=== PATIENT | female | born 1945 | race Caucasian/White ===

== ENCOUNTER 2022-05-23 10:25 | Inpatient (IN) | payer MEDICARE ==
[~2022-05-23] VITALS: Ht 165.1 cm; Wt 120.0 kg
[2022-05-23] MEDS ORDERED: PROPOFOL 1000 MG/ISO-OSM 0 ML ONE (10:51)
[2022-05-23 10:58] LABS: COVID AG,FIA SOURCE NASOPHARYNGEAL
[2022-05-23 10:59] LABS: BASOPHILS % (AUTO) 0.1 % (0.0-2.0); EOSINOPHILS % (AUTO) 1.1 % (1.0-6.0); HEMATOCRIT 27.1 % (36-46); HEMOGLOBIN 7.3 g/dL (12.0-16.0); LYMPHOCYTES # (AUTO) 8.5 K/uL (1.0-4.8); LYMPHOCYTES % (AUTO) 45.1 % (22.0-44.0); MEAN CORPUSCULAR HEMOGLOBIN 17.5 pg (26.0-34.0); MEAN CORPUSCULAR HGB CONC 26.8 G/dL (31.0-37.0); MEAN CORPUSCULAR VOLUME 65 fL (80-100); MONOCYTES # (AUTO) 0.8 K/uL (0.1-1.0); MONOCYTES % (AUTO) 4.3 % (2.0-9.0); NEUTROPHILS # (AUTO) 9.3 K/uL (1.8-7.7); NEUTROPHILS % (AUTO) 49.4 % (40.0-70.0); PLATELET COUNT (AUTO) 289 K/uL (150-450); RED BLOOD CELL COUNT(AUTO) 4.14 MIL/uL (4.00-5.20); RED CELL DISTRIBUTION WIDTH 22.8 % (11.5-14.5)
[2022-05-23 11:11] LABS: ANION GAP 15 mmol/L (8-16); CALCIUM, TOTAL 8.6 mg/dL (8.8-10.5); CARBON DIOXIDE 19 mmol/L (22-29); CHLORIDE 100 mmol/L (98-107); CREATININE 1.53 mg/dL (0.60-1.30); GLOMERULAR FILTR. RATE CALC 33 mL/min (>60); GLUCOSE,RANDOM 353 mg/dL (70-110); POTASSIUM 3.5 mmol/L (3.5-5.1); SODIUM SERUM 134 mmol/L (136-145); UREA NITROGEN, BLOOD 11 mg/dL (7-18)
[2022-05-23 11:21] LABS: AMMONIA 79 umol/L (11-32)
[2022-05-23] MEDS ORDERED: PROPOFOL 1000 MG/ISO-OSM 100 ML ONE (11:23)
[2022-05-23 11:25] LABS: APPEARANCE,URINE CLEAR (CLEAR); BILIRUBIN,URINE NEGATIVE (NEGATIVE); GLUCOSE, URINE (UA) >=1000 mg/dL (NEGATIVE); KETONES,URINE TRACE mg/dL (NEGATIVE); LEUKOCYTE ESTERASE ,URINE NEGATIVE (NEGATIVE); NITRATE,URINE NEGATIVE (NEGATIVE); OCCULT BLOOD,URINE MODERATE (NEGATIVE); PROTEIN,URINE 300-600,SEE CONFIRM mg/dL (NEGATIVE); SPECIFIC GRAVITIY, URINE 1.009 (1.003-1.030); UROBILINOGEN,URINE <=1.0 mg/dL (<=1.0)
[2022-05-23 11:25] LABS: ALANINE AMINOTRANSFERASE 251 U/L (12-78); ALBUMIN 3.1 g/dL (3.4-5.0); ALKALINE PHOSPHATASE 144 U/L (46-116); ASPARTATE AMINOTRANSFERASE 311 U/L (15-37); BILIRUBIN,TOTAL 0.1 mg/dL (0.1-1.0); FREE T4 (FREE THYROXINE) 0.69 ng/dL (0.76-1.46); LIPASE 66 U/L (73-393); THYROID STIMULATING HORMONE 12.39 uIU/mL (0.36-3.74); TOTAL PROTEIN, SERUM 7.1 g/dL (6.4-8.2)
[2022-05-23] MEDS ORDERED: PIPERACILLIN/TAZO 3.375 GM/D5W 50 ML IV ONE (11:30)
[2022-05-23] MEDS ORDERED: MIDAZOLAM HCL 2 MG/2 ML VIAL IVP ONE (11:30)
[2022-05-23 11:31] LABS: AMPHET/METH SCREEN,URINE NEGATIVE (NEGATIVE); BARBITURATE SCREEN, URINE NEGATIVE (NEGATIVE); BENZODIAZEPINES SCREEN,URINE NEGATIVE (NEGATIVE); CANNABINOID SCREEN,URINE NEGATIVE (NEGATIVE); COCAINE SCREEN,URINE NEGATIVE (NEGATIVE); METHADONE SCREEN, URINE NEGATIVE (NEGATIVE); OPIATE SCREEN,URINE NEGATIVE (NEGATIVE)
[2022-05-23] MEDS: PROPOFOL 1000 MG/ISO-OSM 100 ML IV PRN ×3 (11:31→23:11)
[2022-05-23 11:34] LABS: PHENCYCLIDINE SCREEN,URINE NEGATIVE (NEGATIVE)
[2022-05-23 11:50] LABS: ABG BASE EXCESS -7.1 mmol/L (-2.0-3.0); ABG CARBOXYHEMOGLOBIN 1.4 % (0.0-1.5); ABG HCO3 18.7 mmol/L (22.0-26.0); ABG METHEMOGLOBIN 0.3 % (0.0-1.5); ABG OXYGEN CONTENT 11.6 mL/dL (15.0-23.0); ABG OXYGEN SATURATION 98.3 % (95.0-98.0); ABG OXYHEMOGLOBIN 96.6 % (94.0-100.0); ABG PCO2 60 mmHg (35-45); ABG PH 7.173 (7.35-7.450); ABG TOTAL HEMOGLOBIN 8.3 G/dL (12.0-18.0); PO2, ARTERIAL BG 145.1 mmHg (75.0-83.0); SITE, BLOOD GAS RT RADIAL; SOURCE, BLOOD GAS ARTERIAL; TEMPERATURE, FAHRENHEIT, BG 98.6 FAHREN (96.0-98.6)
[2022-05-23 11:51] LABS: O2 DEVICE,BLOOD GAS VENTILATOR (ROOM AIR); PEEP,BG 5 cm H2O; PRESSURE SUPPORT, BG 5 cm H2O; SPONTANEOUS VT, BG 555 ml; VENT MODE, BG SIMV (ROOM AIR); VT, ABG 420 ml
[2022-05-23 12:30] LABS: B-TYPE NATRIURETIC PEPTIDE 147 pg/mL (0-100)
[2022-05-23 12:31] LABS: SULFOSALICYLIC ACID,URINE 4+ (Negative)
[2022-05-23 12:34] LABS: BACTERIA,URINE Rare /HPF (None Seen)
[2022-05-23] MEDS ORDERED: IOHEXOL 350 MG/ML 100 ML VIAL ONE (12:45)
[2022-05-23] MEDS ORDERED: SODIUM CHLORIDE 0.9% 100 ML ONE (12:45)
[2022-05-23] MEDS ORDERED: SODIUM BICARBONATE [ADULT] 8.4% 50 MEQ/50 ML SYRINGE IVP ONE (14:15)
[2022-05-23] MEDS ORDERED: *CLINICAL-LEVOFLOXACIN IVPB DOSING CLINICAL ONE (14:30)
[2022-05-23] MEDS: FentaNYL CIT 1000MCG/0.9% NACL 100 ML IV PRN ×2 (14:37→20:48)
[2022-05-23] MEDS: LEVOFLOXACIN 750 MG/D5% WATER 150 ML IV SCH (14:45)
[2022-05-23 15:28] LABS: ABG A-A DIFF O2 397.8 mmHg (10-20.0); ABG BASE EXCESS 0.2 mmol/L (-2.0-3.0); ABG CARBOXYHEMOGLOBIN 0.7 % (0.0-1.5); ABG HCO3 24.6 mmol/L (22.0-26.0); ABG METHEMOGLOBIN 0.3 % (0.0-1.5); ABG OXYGEN CONTENT 11.5 mL/dL (15.0-23.0); ABG OXYGEN SATURATION 99.7 % (95.0-98.0); ABG OXYHEMOGLOBIN 98.7 % (94.0-100.0); ABG PCO2 48 mmHg (35-45); ABG PH 7.348 (7.35-7.450); ABG TOTAL HEMOGLOBIN 7.8 G/dL (12.0-18.0); O2 DEVICE,BLOOD GAS VENTILATOR (ROOM AIR); PEEP,BG 5 cm H2O; PO2, ARTERIAL BG 268.1 mmHg (75.0-83.0); SITE, BLOOD GAS RT RADIAL; SOURCE, BLOOD GAS ARTERIAL; TEMPERATURE, FAHRENHEIT, BG 97.9 FAHREN (96.0-98.6); VT, ABG 420 ml
[2022-05-23] MEDS ORDERED: SODIUM CHLORIDE 0.9% 1,000 ML IV ONE ×3 (15:45→17:00)
[2022-05-23] MEDS: NOREPINEPHRINE 8 MG/D5%-WATER 250 ML IV PRN (17:30)
[2022-05-23 19:36] LABS: GLUCOSE,POINT OF CARE 105 MG/DL (70-110)
[2022-05-23] MEDS ORDERED: IPRATROPIUM BROMIDE 0.5 MG/2.5 ML NEB SOLUTION NEB PRN (19:45)
[2022-05-23] MEDS ORDERED: ALBUTEROL SULFATE 2.5 MG/0.5 ML NEB SOLUTION NEB PRN (19:45)
[2022-05-23] MEDS ORDERED: ONDANSETRON HCL 4 MG/2 ML VIAL IVP PRN (19:45)
[2022-05-23] MEDS ORDERED: MAGNESIUM HYDROXIDE SUSPENSION 30 ML UDCUP PO PRN (19:45)
[2022-05-23] MEDS ORDERED: HYDROCODONE/ACETAMINOPHEN 5-325 MG TABLET PO PRN (19:45)
[2022-05-23] MEDS ORDERED: BISACODYL 10 MG RECTAL RECTAL SUPPOSITORY PR PRN (19:45)
[2022-05-23] MEDS ORDERED: ZOLPIDEM TARTRATE 5 MG TABLET PO PRN (19:45)
[2022-05-23 20:00] VITALS: BP 93/49
[2022-05-23] MEDS: DOCUSATE SODIUM 100 MG CAPSULE PO SCH (20:19)
[2022-05-23] MEDS: HEPARIN SODIUM,PORCINE 5,000 UNITS/ML VIAL SQ SCH (23:13)
[2022-05-24] VITALS (20 sets, daily range): BP systolic 86–140; BP diastolic 11–75
[2022-05-24] MEDS: PROPOFOL 1000 MG/ISO-OSM 100 ML IV PRN ×6 (03:05→22:41)
[2022-05-24] MEDS: FentaNYL CIT 1000MCG/0.9% NACL 100 ML IV PRN ×2 (03:06→10:21)
[2022-05-24] MEDS: NOREPINEPHRINE 8 MG/D5%-WATER 250 ML IV PRN (04:37)
[2022-05-24] MEDS: ACETAMINOPHEN 325 MG TABLET PO PRN ×3 (05:34→16:43)
[2022-05-24 06:03] LABS: BASOPHILS % (AUTO) 0.2 % (0.0-2.0); EOSINOPHILS % (AUTO) 0.6 % (1.0-6.0); HEMATOCRIT 21.8 % (36-46); LYMPHOCYTES # (AUTO) 1.7 K/uL (1.0-4.8); LYMPHOCYTES % (AUTO) 15.2 % (22.0-44.0); MEAN CORPUSCULAR HEMOGLOBIN 17.8 pg (26.0-34.0); MEAN CORPUSCULAR HGB CONC 28.8 G/dL (31.0-37.0); MEAN CORPUSCULAR VOLUME 62 fL (80-100); MONOCYTES % (AUTO) 8.7 % (2.0-9.0); NEUTROPHILS # (AUTO) 8.3 K/uL (1.8-7.7); NEUTROPHILS % (AUTO) 75.3 % (40.0-70.0); PLATELET COUNT (AUTO) 212 K/uL (150-450); RED BLOOD CELL COUNT(AUTO) 3.53 MIL/uL (4.00-5.20); RED CELL DISTRIBUTION WIDTH 21.8 % (11.5-14.5)
[2022-05-24 06:06] LABS: CALCIUM, TOTAL 7.5 mg/dL (8.8-10.5); CREATININE 0.99 mg/dL (0.60-1.30); POTASSIUM 4.4 mmol/L (3.5-5.1)
[2022-05-24 06:13] LABS: HEMOGLOBIN 6.3 g/dL (12.0-16.0)
[2022-05-24] MEDS: DOCUSATE SODIUM 100 MG CAPSULE PO SCH ×2 (09:00→20:31)
[2022-05-24] MEDS: PANTOPRAZOLE SODIUM 40 MG/VIAL IVP SCH (09:03)
[2022-05-24] MEDS: HEPARIN SODIUM,PORCINE 5,000 UNITS/ML VIAL SQ SCH ×3 (09:03→23:12)
[2022-05-24] MEDS: ETHYL ALCOHOL 62% ANTISEPTIC NASAL SANITIZER 0.6 ML AMPUL NASAL SCH ×2 (09:03→20:26)
[2022-05-24] MEDS ORDERED: SODIUM CHLORIDE 0.9% 250 ML IV ONE (09:34)
[2022-05-24] MEDS ORDERED: LEVOTHYROXINE SODIUM 50 MCG TABLET NG SCH (10:00)
[2022-05-24] MEDS: LEVOTHYROXINE SODIUM 100 MCG TABLET NG SCH (10:20)
[2022-05-24] MEDS: SODIUM CHLORIDE 0.9% 1,000 ML IV SCH ×2 (10:20→20:26)
[2022-05-24 13:00] LABS: % IRON SATURATION 4.1 % (22-44)
[2022-05-25] VITALS: BP 102/53
[2022-05-25 00:28] LABS: BASOPHILS % (AUTO) 0.4 % (0.0-2.0); EOSINOPHILS % (AUTO) 0.9 % (1.0-6.0); HEMATOCRIT 27.1 % (36-46); HEMOGLOBIN 8.1 g/dL (12.0-16.0); LYMPHOCYTES # (AUTO) 1.3 K/uL (1.0-4.8); LYMPHOCYTES % (AUTO) 9.6 % (22.0-44.0); MEAN CORPUSCULAR HEMOGLOBIN 20.5 pg (26.0-34.0); MEAN CORPUSCULAR HGB CONC 30.1 G/dL (31.0-37.0); MEAN CORPUSCULAR VOLUME 68 fL (80-100); MONOCYTES # (AUTO) 1.1 K/uL (0.1-1.0); MONOCYTES % (AUTO) 8.1 % (2.0-9.0); NEUTROPHILS # (AUTO) 11.4 K/uL (1.8-7.7); PLATELET COUNT (AUTO) 146 K/uL (150-450); RED BLOOD CELL COUNT(AUTO) 3.98 MIL/uL (4.00-5.20); RED CELL DISTRIBUTION WIDTH 28.5 % (11.5-14.5)
[2022-05-25] MEDS: FentaNYL CIT 1000MCG/0.9% NACL 100 ML IV PRN ×3 (01:35→21:04)
[2022-05-25] MEDS: PROPOFOL 1000 MG/ISO-OSM 100 ML IV PRN ×6 (02:26→21:06)
[2022-05-25 04:00] VITALS: BP 113/40
[2022-05-25] MEDS: SODIUM CHLORIDE 0.9% 1,000 ML IV SCH ×2 (05:30→16:31)
[2022-05-25 05:37] LABS: BASOPHILS % (AUTO) 0.4 % (0.0-2.0); EOSINOPHILS % (AUTO) 0.5 % (1.0-6.0); HEMATOCRIT 26.2 % (36-46); HEMOGLOBIN 8.1 g/dL (12.0-16.0); LYMPHOCYTES # (AUTO) 1.1 K/uL (1.0-4.8); LYMPHOCYTES % (AUTO) 7.5 % (22.0-44.0); MEAN CORPUSCULAR HGB CONC 30.8 G/dL (31.0-37.0); MEAN CORPUSCULAR VOLUME 68 fL (80-100); MONOCYTES # (AUTO) 1.2 K/uL (0.1-1.0); MONOCYTES % (AUTO) 8.5 % (2.0-9.0); NEUTROPHILS # (AUTO) 11.9 K/uL (1.8-7.7); NEUTROPHILS % (AUTO) 83.1 % (40.0-70.0); PLATELET COUNT (AUTO) 141 K/uL (150-450); RED BLOOD CELL COUNT(AUTO) 3.84 MIL/uL (4.00-5.20); RED CELL DISTRIBUTION WIDTH 28.2 % (11.5-14.5)
[2022-05-25 05:47] LABS: CALCIUM, TOTAL 7.9 mg/dL (8.8-10.5); CREATININE 1.24 mg/dL (0.60-1.30); POTASSIUM 4.6 mmol/L (3.5-5.1)
[2022-05-25] MEDS: LEVOTHYROXINE SODIUM 100 MCG TABLET NG SCH (06:09)
[2022-05-25 08:00] VITALS: BP 131/58
[2022-05-25] MEDS: HEPARIN SODIUM,PORCINE 5,000 UNITS/ML VIAL SQ SCH ×2 (08:00→15:05)
[2022-05-25] MEDS: DOCUSATE SODIUM 100 MG CAPSULE PO SCH ×2 (08:21→21:00)
[2022-05-25] MEDS: PANTOPRAZOLE SODIUM 40 MG/VIAL IVP SCH (08:29)
[2022-05-25] MEDS: ETHYL ALCOHOL 62% ANTISEPTIC NASAL SANITIZER 0.6 ML AMPUL NASAL SCH ×2 (08:29→21:04)
[2022-05-25 12:00] VITALS: BP 98/46
[2022-05-25] MEDS: LEVOFLOXACIN 750 MG/D5% WATER 150 ML IV SCH (15:03)
[2022-05-25] MEDS ORDERED: SODIUM CHLORIDE 0.9% 250 ML IV ONE (15:14)
[2022-05-25 16:00] VITALS: BP 107/41
[2022-05-25 20:00] VITALS: BP 95/49
[2022-05-26] VITALS: BP 112/52
[2022-05-26] MEDS: PROPOFOL 1000 MG/ISO-OSM 100 ML IV PRN ×5 (02:02→23:23)
[2022-05-26] MEDS: SODIUM CHLORIDE 0.9% 1,000 ML IV SCH ×3 (02:02→22:51)
[2022-05-26 04:00] VITALS: BP 92/41
[2022-05-26] MEDS: FentaNYL CIT 1000MCG/0.9% NACL 100 ML IV PRN (04:17)
[2022-05-26] MEDS: LEVOTHYROXINE SODIUM 100 MCG TABLET NG SCH (06:20)
[2022-05-26 07:56] LABS: BASOPHILS % (AUTO) 0.5 % (0.0-2.0); CALCIUM, TOTAL 8.3 mg/dL (8.8-10.5); CREATININE 1.14 mg/dL (0.60-1.30); EOSINOPHILS % (AUTO) 1.3 % (1.0-6.0); HEMATOCRIT 25.1 % (36-46); HEMOGLOBIN 7.6 g/dL (12.0-16.0); LYMPHOCYTES # (AUTO) 0.8 K/uL (1.0-4.8); LYMPHOCYTES % (AUTO) 5.9 % (22.0-44.0); MEAN CORPUSCULAR HEMOGLOBIN 20.7 pg (26.0-34.0); MEAN CORPUSCULAR HGB CONC 30.3 G/dL (31.0-37.0); MEAN CORPUSCULAR VOLUME 68 fL (80-100); MONOCYTES # (AUTO) 1.2 K/uL (0.1-1.0); MONOCYTES % (AUTO) 9.3 % (2.0-9.0); NEUTROPHILS # (AUTO) 10.9 K/uL (1.8-7.7); PLATELET COUNT (AUTO) 132 K/uL (150-450); POTASSIUM 4.5 mmol/L (3.5-5.1); RED BLOOD CELL COUNT(AUTO) 3.67 MIL/uL (4.00-5.20)
[2022-05-26 08:00] VITALS: BP 132/61
[2022-05-26] MEDS: ETHYL ALCOHOL 62% ANTISEPTIC NASAL SANITIZER 0.6 ML AMPUL NASAL SCH ×2 (08:25→20:00)
[2022-05-26] MEDS: PANTOPRAZOLE SODIUM 40 MG/VIAL IVP SCH (08:25)
[2022-05-26] MEDS: DOCUSATE SODIUM 100 MG CAPSULE PO SCH ×3 (08:26→20:00)
[2022-05-26] MEDS: HEPARIN SODIUM,PORCINE 5,000 UNITS/ML VIAL SQ SCH ×2 (08:26)
[2022-05-26] MEDS: LEVOFLOXACIN 750 MG/D5% WATER 150 ML IV SCH (09:41)
[2022-05-26] MEDS: MORPHINE SULFATE 2 MG/ML SYRINGE IVP PRN ×3 (10:09→15:27)
[2022-05-26] MEDS ORDERED: DEXMEDETOMIDINE HCL 400 MCG in SODIUM CHLORIDE 0.9% 96 ML IV PRN (10:15)
[2022-05-26] MEDS ORDERED: HEPARIN SODIUM 25000 UNITS/D5W 250 ML IV PRN (10:30)
[2022-05-26] MEDS ORDERED: HEPARIN SODIUM,PORCINE 5,000 UNITS/ML VIAL IVP ONE ×2 (10:30→10:45)
[2022-05-26] MEDS ORDERED: HEPARIN SODIUM,PORCINE 5,000 UNITS/ML VIAL IVP PRN ×4 (10:30)
[2022-05-26] MEDS: DEXMEDETOMIDINE HCL 400 MCG in SODIUM CHLORIDE 0.9% 96 ML IV PRN (11:11)
[2022-05-26 12:00] VITALS: BP 168/79
[2022-05-26] MEDS: HEPARIN SODIUM 25000 UNITS/D5W 250 ML IV PRN (13:20)
[2022-05-26 16:00] VITALS: BP 172/68
[2022-05-26 20:00] VITALS: BP 121/51
[2022-05-27] VITALS: BP 122/55
[2022-05-27] MEDS: HEPARIN SODIUM 25000 UNITS/D5W 250 ML IV PRN ×2 (02:38→16:56)
[2022-05-27 04:00] VITALS: BP 118/71
[2022-05-27] MEDS: PROPOFOL 1000 MG/ISO-OSM 100 ML IV PRN ×6 (05:19→23:24)
[2022-05-27] MEDS: LEVOTHYROXINE SODIUM 100 MCG TABLET NG SCH (05:58)
[2022-05-27 06:15] LABS: BASOPHILS % (AUTO) 0.5 % (0.0-2.0); EOSINOPHILS % (AUTO) 1.4 % (1.0-6.0); HEMATOCRIT 24.6 % (36-46); HEMOGLOBIN 7.6 g/dL (12.0-16.0); LYMPHOCYTES % (AUTO) 8.3 % (22.0-44.0); MEAN CORPUSCULAR HEMOGLOBIN 20.8 pg (26.0-34.0); MEAN CORPUSCULAR HGB CONC 30.7 G/dL (31.0-37.0); MEAN CORPUSCULAR VOLUME 68 fL (80-100); MONOCYTES # (AUTO) 1.1 K/uL (0.1-1.0); MONOCYTES % (AUTO) 9.4 % (2.0-9.0); NEUTROPHILS # (AUTO) 9.5 K/uL (1.8-7.7); NEUTROPHILS % (AUTO) 80.4 % (40.0-70.0); PLATELET COUNT (AUTO) 146 K/uL (150-450); RED BLOOD CELL COUNT(AUTO) 3.63 MIL/uL (4.00-5.20); RED CELL DISTRIBUTION WIDTH 29.7 % (11.5-14.5)
[2022-05-27 06:17] LABS: CALCIUM, TOTAL 8.8 mg/dL (8.8-10.5); CREATININE 0.93 mg/dL (0.60-1.30)
[2022-05-27 08:00] VITALS: BP 165/90
[2022-05-27 08:21] LABS: GLUCOSE,POINT OF CARE 114 MG/DL (70-110)
[2022-05-27] MEDS: PANTOPRAZOLE SODIUM 40 MG/VIAL IVP SCH (08:21)
[2022-05-27] MEDS: DOCUSATE SODIUM 100 MG CAPSULE PO SCH ×2 (08:23→20:48)
[2022-05-27] MEDS: SODIUM CHLORIDE 0.9% 1,000 ML IV SCH ×2 (08:23→18:55)
[2022-05-27] MEDS: ETHYL ALCOHOL 62% ANTISEPTIC NASAL SANITIZER 0.6 ML AMPUL NASAL SCH ×2 (08:23→20:49)
[2022-05-27] MEDS: LEVOFLOXACIN 750 MG/D5% WATER 150 ML IV SCH (10:11)
[2022-05-27 12:00] VITALS: BP 103/45
[2022-05-27 16:00] VITALS: BP 139/61
[2022-05-27 20:00] VITALS: BP 143/60
[2022-05-28] VITALS (7 sets, daily range): BP systolic 102–178; BP diastolic 46–91
[2022-05-28] MEDS: PROPOFOL 1000 MG/ISO-OSM 100 ML IV PRN (03:16)
[2022-05-28] MEDS: SODIUM CHLORIDE 0.9% 1,000 ML IV SCH ×2 (04:22→15:00)
[2022-05-28 05:52] LABS: BASOPHILS % (AUTO) 0.7 % (0.0-2.0); EOSINOPHILS % (AUTO) 2.7 % (1.0-6.0); HEMOGLOBIN 7.6 g/dL (12.0-16.0); LYMPHOCYTES # (AUTO) 1.6 K/uL (1.0-4.8); LYMPHOCYTES % (AUTO) 17.9 % (22.0-44.0); MEAN CORPUSCULAR HEMOGLOBIN 20.9 pg (26.0-34.0); MEAN CORPUSCULAR HGB CONC 31.6 G/dL (31.0-37.0); MEAN CORPUSCULAR VOLUME 66 fL (80-100); MONOCYTES # (AUTO) 0.9 K/uL (0.1-1.0); MONOCYTES % (AUTO) 10.4 % (2.0-9.0); NEUTROPHILS % (AUTO) 68.3 % (40.0-70.0); PLATELET COUNT (AUTO) 150 K/uL (150-450); RED BLOOD CELL COUNT(AUTO) 3.63 MIL/uL (4.00-5.20); RED CELL DISTRIBUTION WIDTH 30.6 % (11.5-14.5)
[2022-05-28 06:04] LABS: ALANINE AMINOTRANSFERASE 50 U/L (12-78); ALBUMIN 1.7 g/dL (3.4-5.0); ALKALINE PHOSPHATASE 246 U/L (46-116); ANION GAP 5 mmol/L (8-16); ASPARTATE AMINOTRANSFERASE 26 U/L (15-37); BILIRUBIN,TOTAL 0.3 mg/dL (0.1-1.0); CALCIUM, TOTAL 8.6 mg/dL (8.8-10.5); CARBON DIOXIDE 24 mmol/L (22-29); CHLORIDE 108 mmol/L (98-107); CREATININE 0.84 mg/dL (0.60-1.30); GLUCOSE,RANDOM 118 mg/dL (70-110); POTASSIUM 3.8 mmol/L (3.5-5.1); SODIUM SERUM 137 mmol/L (136-145); TOTAL PROTEIN, SERUM 6.1 g/dL (6.4-8.2); UREA NITROGEN, BLOOD 18 mg/dL (7-18)
[2022-05-28 06:10] LABS: GLOMERULAR FILTR. RATE CALC > 60 mL/min (>60)
[2022-05-28] MEDS: LEVOTHYROXINE SODIUM 100 MCG TABLET NG SCH (06:28)
[2022-05-28] MEDS: HEPARIN SODIUM 25000 UNITS/D5W 250 ML IV PRN ×2 (07:07→22:43)
[2022-05-28] MEDS: MORPHINE SULFATE 2 MG/ML SYRINGE IVP PRN (07:37)
[2022-05-28] MEDS: PANTOPRAZOLE SODIUM 40 MG/VIAL IVP SCH (09:00)
[2022-05-28] MEDS: ETHYL ALCOHOL 62% ANTISEPTIC NASAL SANITIZER 0.6 ML AMPUL NASAL SCH ×2 (09:00→20:29)
[2022-05-28] MEDS: DOCUSATE SODIUM 100 MG CAPSULE PO SCH ×2 (09:00→20:29)
[2022-05-28] MEDS: DEXMEDETOMIDINE HCL 400 MCG in SODIUM CHLORIDE 0.9% 96 ML IV PRN ×3 (09:00→23:00)
[2022-05-28] MEDS: LEVOFLOXACIN 750 MG/D5% WATER 150 ML IV SCH (09:01)
[2022-05-28] MEDS: FentaNYL CIT 1000MCG/0.9% NACL 100 ML IV PRN ×2 (14:14→22:20)
[2022-05-29] VITALS (13 sets, daily range): BP systolic 94–190; BP diastolic 31–89
[2022-05-29] MEDS: SODIUM CHLORIDE 0.9% 1,000 ML IV SCH ×3 (00:33→20:18)
[2022-05-29] MEDS: DEXMEDETOMIDINE HCL 400 MCG in SODIUM CHLORIDE 0.9% 96 ML IV PRN ×2 (04:44→10:10)
[2022-05-29] MEDS: MORPHINE SULFATE 2 MG/ML SYRINGE IVP PRN (06:19)
[2022-05-29] MEDS: PROPOFOL 1000 MG/ISO-OSM 100 ML IV PRN ×4 (06:23→22:55)
[2022-05-29 06:26] LABS: ANION GAP 6 mmol/L (8-16); BASOPHILS % (AUTO) 1.2 % (0.0-2.0); CALCIUM, TOTAL 8.7 mg/dL (8.8-10.5); CARBON DIOXIDE 23 mmol/L (22-29); CHLORIDE 109 mmol/L (98-107); CREATININE 0.72 mg/dL (0.60-1.30); EOSINOPHILS % (AUTO) 2.7 % (1.0-6.0); GLUCOSE,RANDOM 133 mg/dL (70-110); HEMATOCRIT 22.1 % (36-46); LYMPHOCYTES # (AUTO) 1.3 K/uL (1.0-4.8); LYMPHOCYTES % (AUTO) 18.3 % (22.0-44.0); MEAN CORPUSCULAR HEMOGLOBIN 20.6 pg (26.0-34.0); MEAN CORPUSCULAR HGB CONC 31.1 G/dL (31.0-37.0); MEAN CORPUSCULAR VOLUME 66 fL (80-100); MONOCYTES # (AUTO) 0.9 K/uL (0.1-1.0); MONOCYTES % (AUTO) 12.6 % (2.0-9.0); NEUTROPHILS # (AUTO) 4.5 K/uL (1.8-7.7); NEUTROPHILS % (AUTO) 65.2 % (40.0-70.0); PLATELET COUNT (AUTO) 151 K/uL (150-450); POTASSIUM 3.7 mmol/L (3.5-5.1); RED BLOOD CELL COUNT(AUTO) 3.33 MIL/uL (4.00-5.20); RED CELL DISTRIBUTION WIDTH 30.4 % (11.5-14.5); SODIUM SERUM 138 mmol/L (136-145); UREA NITROGEN, BLOOD 17 mg/dL (7-18)
[2022-05-29] MEDS: LEVOTHYROXINE SODIUM 100 MCG TABLET NG SCH (06:31)
[2022-05-29 06:53] LABS: HEMOGLOBIN 6.9 g/dL (12.0-16.0)
[2022-05-29 06:58] LABS: GLOMERULAR FILTR. RATE CALC > 60 mL/min (>60)
[2022-05-29] MEDS: PANTOPRAZOLE SODIUM 40 MG/VIAL IVP SCH (08:42)
[2022-05-29] MEDS: AMINO ACIDS/PROTEIN HYDROLYS 30 ML TUBE NG SCH ×3 (08:42→16:39)
[2022-05-29] MEDS: DOCUSATE SODIUM 100 MG CAPSULE PO SCH ×2 (08:43→20:18)
[2022-05-29] MEDS: ETHYL ALCOHOL 62% ANTISEPTIC NASAL SANITIZER 0.6 ML AMPUL NASAL SCH ×2 (08:43→20:18)
[2022-05-29] MEDS ORDERED: SODIUM CHLORIDE 0.9% 250 ML IV ONE (09:01)
[2022-05-29] MEDS: HEPARIN SODIUM,PORCINE 5,000 UNITS/ML VIAL IVP PRN (09:42)
[2022-05-29] MEDS: LEVOFLOXACIN 750 MG/D5% WATER 150 ML IV SCH (11:13)
[2022-05-29] MEDS: ACETAMINOPHEN 325 MG TABLET PO PRN ×3 (12:09→20:42)
[2022-05-29] MEDS: HEPARIN SODIUM 25000 UNITS/D5W 250 ML IV PRN (13:45)
[2022-05-29 18:01] LABS: SOURCE, BLOOD GAS ARTERIAL; TEMPERATURE, FAHRENHEIT, BG 100.5 FAHREN (96.0-98.6)
[2022-05-29 18:03] LABS: ABG BASE EXCESS -6.1 mmol/L (-2.0-3.0); ABG CARBOXYHEMOGLOBIN 1.8 % (0.0-1.5); ABG HCO3 19.9 mmol/L (22.0-26.0); ABG METHEMOGLOBIN 0.3 % (0.0-1.5); ABG PCO2 35 mmHg (35-45); ABG PH 7.364 (7.35-7.450); ABG TOTAL HEMOGLOBIN 9.1 G/dL (12.0-18.0); PO2, ARTERIAL BG 77.5 mmHg (75.0-83.0)
[2022-05-29 18:04] LABS: O2 DEVICE,BLOOD GAS VENTILATOR (ROOM AIR); PEEP,BG 5 cm H2O; PRESSURE SUPPORT, BG 0 cm H2O; SITE, BLOOD GAS RT RADIAL; SPONTANEOUS VT, BG 606 ml; VENT MODE, BG Press. Support Vent. (ROOM AIR)
[2022-05-29 18:13] LABS: HEMATOCRIT 27.7 % (36-46); HEMOGLOBIN 8.4 g/dL (12.0-16.0)
[2022-05-29] MEDS: FentaNYL CIT 1000MCG/0.9% NACL 100 ML IV PRN (18:43)
[2022-05-30] VITALS: BP 154/69
[2022-05-30] MEDS: FentaNYL CIT 1000MCG/0.9% NACL 100 ML IV PRN ×2 (03:42→16:49)
[2022-05-30] MEDS: HEPARIN SODIUM 25000 UNITS/D5W 250 ML IV PRN ×2 (03:42→16:50)
[2022-05-30 04:00] VITALS: BP 111/44
[2022-05-30] MEDS: PROPOFOL 1000 MG/ISO-OSM 100 ML IV PRN ×5 (04:36→22:19)
[2022-05-30 05:12] LABS: BASOPHILS % (AUTO) 0.8 % (0.0-2.0); EOSINOPHILS % (AUTO) 2.4 % (1.0-6.0); HEMATOCRIT 23.1 % (36-46); HEMOGLOBIN 7.3 g/dL (12.0-16.0); LYMPHOCYTES # (AUTO) 1.4 K/uL (1.0-4.8); LYMPHOCYTES % (AUTO) 15.8 % (22.0-44.0); MEAN CORPUSCULAR HEMOGLOBIN 21.5 pg (26.0-34.0); MEAN CORPUSCULAR HGB CONC 31.4 G/dL (31.0-37.0); MEAN CORPUSCULAR VOLUME 69 fL (80-100); MONOCYTES # (AUTO) 1.2 K/uL (0.1-1.0); NEUTROPHILS # (AUTO) 5.9 K/uL (1.8-7.7); PLATELET COUNT (AUTO) 145 K/uL (150-450); RED BLOOD CELL COUNT(AUTO) 3.38 MIL/uL (4.00-5.20); RED CELL DISTRIBUTION WIDTH 30.9 % (11.5-14.5)
[2022-05-30] MEDS: LEVOTHYROXINE SODIUM 100 MCG TABLET NG SCH (06:20)
[2022-05-30] MEDS: SODIUM CHLORIDE 0.9% 1,000 ML IV SCH ×2 (06:20→16:50)
[2022-05-30 08:00] VITALS: BP 155/67
[2022-05-30] MEDS: ETHYL ALCOHOL 62% ANTISEPTIC NASAL SANITIZER 0.6 ML AMPUL NASAL SCH ×2 (08:22→20:10)
[2022-05-30] MEDS: DOCUSATE SODIUM 100 MG CAPSULE PO SCH ×2 (08:22→20:10)
[2022-05-30] MEDS: PANTOPRAZOLE SODIUM 40 MG/VIAL IVP SCH (08:22)
[2022-05-30] MEDS: LEVOFLOXACIN 750 MG/D5% WATER 150 ML IV SCH (11:00)
[2022-05-30] MEDS: AMINO ACIDS/PROTEIN HYDROLYS 30 ML TUBE NG SCH ×2 (11:01→16:50)
[2022-05-30 12:00] VITALS: BP 182/87
[2022-05-30] MEDS: DEXMEDETOMIDINE HCL 400 MCG in SODIUM CHLORIDE 0.9% 96 ML IV PRN (12:07)
[2022-05-30] MEDS: ACETAMINOPHEN 325 MG TABLET PO PRN (12:09)
[2022-05-30 16:00] VITALS: BP 156/68
[2022-05-30 20:00] VITALS: BP 167/94
[2022-05-31] VITALS: BP 139/74
[2022-05-31] MEDS: FentaNYL CIT 1000MCG/0.9% NACL 100 ML IV PRN ×3 (01:39→21:00)
[2022-05-31] MEDS: PROPOFOL 1000 MG/ISO-OSM 100 ML IV PRN ×5 (01:39→20:23)
[2022-05-31] MEDS: SODIUM CHLORIDE 0.9% 1,000 ML IV SCH ×3 (03:04→23:28)
[2022-05-31 04:00] VITALS: BP 170/90
[2022-05-31] MEDS: HEPARIN SODIUM 25000 UNITS/D5W 250 ML IV PRN ×2 (05:21→17:50)
[2022-05-31 05:36] LABS: BASOPHILS % (AUTO) 0.6 % (0.0-2.0); EOSINOPHILS % (AUTO) 3.5 % (1.0-6.0); HEMATOCRIT 23.4 % (36-46); HEMOGLOBIN 7.2 g/dL (12.0-16.0); LYMPHOCYTES # (AUTO) 1.3 K/uL (1.0-4.8); LYMPHOCYTES % (AUTO) 12.8 % (22.0-44.0); MEAN CORPUSCULAR HEMOGLOBIN 21.3 pg (26.0-34.0); MEAN CORPUSCULAR HGB CONC 30.9 G/dL (31.0-37.0); MEAN CORPUSCULAR VOLUME 69 fL (80-100); MONOCYTES # (AUTO) 1.4 K/uL (0.1-1.0); MONOCYTES % (AUTO) 14.4 % (2.0-9.0); NEUTROPHILS # (AUTO) 6.9 K/uL (1.8-7.7); NEUTROPHILS % (AUTO) 68.7 % (40.0-70.0); PLATELET COUNT (AUTO) 140 K/uL (150-450); RED BLOOD CELL COUNT(AUTO) 3.39 MIL/uL (4.00-5.20); RED CELL DISTRIBUTION WIDTH 31.4 % (11.5-14.5)
[2022-05-31 05:48] LABS: ALANINE AMINOTRANSFERASE 29 U/L (12-78); ALBUMIN 1.4 g/dL (3.4-5.0); ALKALINE PHOSPHATASE 165 U/L (46-116); ANION GAP 4 mmol/L (8-16); ASPARTATE AMINOTRANSFERASE 28 U/L (15-37); BILIRUBIN,TOTAL 0.3 mg/dL (0.1-1.0); CALCIUM, TOTAL 8.4 mg/dL (8.8-10.5); CARBON DIOXIDE 26 mmol/L (22-29); CHLORIDE 109 mmol/L (98-107); CREATININE 0.63 mg/dL (0.60-1.30); GLOMERULAR FILTR. RATE CALC > 60 mL/min (>60); GLUCOSE,RANDOM 108 mg/dL (70-110); SODIUM SERUM 139 mmol/L (136-145); TOTAL PROTEIN, SERUM 5.3 g/dL (6.4-8.2); UREA NITROGEN, BLOOD 19 mg/dL (7-18)
[2022-05-31] MEDS: LEVOTHYROXINE SODIUM 100 MCG TABLET NG SCH (05:54)
[2022-05-31 08:00] VITALS: BP 201/109
[2022-05-31] MEDS: PANTOPRAZOLE SODIUM 40 MG/VIAL IVP SCH (08:28)
[2022-05-31] MEDS: ETHYL ALCOHOL 62% ANTISEPTIC NASAL SANITIZER 0.6 ML AMPUL NASAL SCH ×2 (08:28→20:11)
[2022-05-31] MEDS: DOCUSATE SODIUM 100 MG CAPSULE PO SCH ×2 (08:28→20:11)
[2022-05-31] MEDS ORDERED: FUROSEMIDE 40 MG/4 ML VIAL IVP ONE (09:45)
[2022-05-31 10:14] LABS: ABG BASE EXCESS -3.4 mmol/L (-2.0-3.0); ABG CARBOXYHEMOGLOBIN 0.8 % (0.0-1.5); ABG HCO3 21.9 mmol/L (22.0-26.0); ABG METHEMOGLOBIN 0.1 % (0.0-1.5); ABG OXYGEN CONTENT 11.4 mL/dL (15.0-23.0); ABG OXYGEN SATURATION 95.6 % (95.0-98.0); ABG OXYHEMOGLOBIN 94.7 % (94.0-100.0); ABG PCO2 37 mmHg (35-45); ABG PH 7.384 (7.35-7.450); ABG TOTAL HEMOGLOBIN 8.5 G/dL (12.0-18.0); PO2, ARTERIAL BG 84.4 mmHg (75.0-83.0); SOURCE, BLOOD GAS ARTERIAL; TEMPERATURE, FAHRENHEIT, BG 99.4 FAHREN (96.0-98.6)
[2022-05-31 10:15] LABS: SITE, BLOOD GAS RT RADIAL
[2022-05-31 10:17] LABS: ABG A-A DIFF O2 85.6 mmHg (10-20.0); CPAP, BG 0 cm H2O; O2 DEVICE,BLOOD GAS VENTILATOR (ROOM AIR); PRESSURE SUPPORT, BG 8 cm H2O; SPONTANEOUS VT, BG 687 ml; VENT MODE, BG CPAP (ROOM AIR)
[2022-05-31] MEDS: AMINO ACIDS/PROTEIN HYDROLYS 30 ML TUBE NG SCH ×2 (11:50→17:00)
[2022-05-31] MEDS: LEVOFLOXACIN 750 MG/D5% WATER 150 ML IV SCH (11:50)
[2022-05-31 12:00] VITALS: BP 123/59
[2022-05-31 16:00] VITALS: BP 130/60
[2022-05-31 20:00] VITALS: BP 146/54
[2022-06-01] VITALS: BP 141/58
[2022-06-01] MEDS: PROPOFOL 1000 MG/ISO-OSM 100 ML IV PRN ×7 (00:07→22:43)
[2022-06-01 04:00] VITALS: BP 169/72
[2022-06-01] MEDS: FentaNYL CIT 1000MCG/0.9% NACL 100 ML IV PRN ×2 (05:36→21:43)
[2022-06-01 06:15] LABS: BASOPHILS % (AUTO) 0.5 % (0.0-2.0); EOSINOPHILS % (AUTO) 3.7 % (1.0-6.0); HEMATOCRIT 24.6 % (36-46); HEMOGLOBIN 7.6 g/dL (12.0-16.0); LYMPHOCYTES % (AUTO) 17.4 % (22.0-44.0); MEAN CORPUSCULAR HEMOGLOBIN 20.9 pg (26.0-34.0); MEAN CORPUSCULAR HGB CONC 30.7 G/dL (31.0-37.0); MEAN CORPUSCULAR VOLUME 68 fL (80-100); MONOCYTES # (AUTO) 1.4 K/uL (0.1-1.0); MONOCYTES % (AUTO) 12.1 % (2.0-9.0); NEUTROPHILS # (AUTO) 7.6 K/uL (1.8-7.7); NEUTROPHILS % (AUTO) 66.3 % (40.0-70.0); PLATELET COUNT (AUTO) 193 K/uL (150-450); RED BLOOD CELL COUNT(AUTO) 3.61 MIL/uL (4.00-5.20); RED CELL DISTRIBUTION WIDTH 32.3 % (11.5-14.5)
[2022-06-01] MEDS: LEVOTHYROXINE SODIUM 100 MCG TABLET NG SCH (06:23)
[2022-06-01 06:27] LABS: ALANINE AMINOTRANSFERASE 34 U/L (12-78); ALBUMIN 1.5 g/dL (3.4-5.0); ALKALINE PHOSPHATASE 170 U/L (46-116); ANION GAP 5 mmol/L (8-16); ASPARTATE AMINOTRANSFERASE 55 U/L (15-37); BILIRUBIN,TOTAL 0.3 mg/dL (0.1-1.0); CALCIUM, TOTAL 8.4 mg/dL (8.8-10.5); CARBON DIOXIDE 27 mmol/L (22-29); CHLORIDE 108 mmol/L (98-107); CREATININE 0.69 mg/dL (0.60-1.30); GLUCOSE,RANDOM 115 mg/dL (70-110); POTASSIUM 3.4 mmol/L (3.5-5.1); SODIUM SERUM 140 mmol/L (136-145); TOTAL PROTEIN, SERUM 5.8 g/dL (6.4-8.2); UREA NITROGEN, BLOOD 15 mg/dL (7-18)
[2022-06-01 06:42] LABS: GLOMERULAR FILTR. RATE CALC > 60 mL/min (>60)
[2022-06-01] MEDS: HEPARIN SODIUM 25000 UNITS/D5W 250 ML IV PRN (07:34)
[2022-06-01 08:00] VITALS: BP 145/66
[2022-06-01] MEDS: SODIUM CHLORIDE 0.9% 1,000 ML IV SCH ×2 (08:45→20:14)
[2022-06-01] MEDS: ETHYL ALCOHOL 62% ANTISEPTIC NASAL SANITIZER 0.6 ML AMPUL NASAL SCH ×2 (08:46→20:14)
[2022-06-01] MEDS: DOCUSATE SODIUM 100 MG CAPSULE PO SCH (08:46)
[2022-06-01] MEDS: PANTOPRAZOLE SODIUM 40 MG/VIAL IVP SCH (08:46)
[2022-06-01] MEDS: LEVOFLOXACIN 750 MG/D5% WATER 150 ML IV SCH (10:52)
[2022-06-01 12:00] VITALS: BP_SYST 136; BP_SYST 138; BP_DIAS 68; BP_DIAS 70
[2022-06-01] MEDS: AMINO ACIDS/PROTEIN HYDROLYS 30 ML TUBE NG SCH ×2 (12:18→17:32)
[2022-06-01 16:00] VITALS: BP 125/64
[2022-06-01 20:00] VITALS: BP 106/50
[2022-06-01] MEDS ORDERED: SODIUM CHLORIDE 0.9% 0 ML IV ONE (20:50)
[2022-06-01] MEDS: DEXMEDETOMIDINE HCL 400 MCG in SODIUM CHLORIDE 0.9% 96 ML IV PRN (21:43)
[2022-06-02] VITALS: BP 120/56
[2022-06-02] MEDS ORDERED: HYDROCODONE/ACETAMINOPHEN 5-325 MG TABLET NG PRN (01:17)
[2022-06-02] MEDS ORDERED: MAGNESIUM HYDROXIDE SUSPENSION 30 ML UDCUP NG PRN (01:17)
[2022-06-02] MEDS ORDERED: ZOLPIDEM TARTRATE 5 MG TABLET NG PRN (01:18)
[2022-06-02 04:00] VITALS: BP 111/49
[2022-06-02] MEDS: SODIUM CHLORIDE 0.9% 1,000 ML IV SCH ×2 (04:32→15:00)
[2022-06-02 05:34] LABS: BASOPHILS % (AUTO) 0.4 % (0.0-2.0); EOSINOPHILS % (AUTO) 2.6 % (1.0-6.0); LYMPHOCYTES # (AUTO) 1.6 K/uL (1.0-4.8); LYMPHOCYTES % (AUTO) 11.8 % (22.0-44.0); MEAN CORPUSCULAR HEMOGLOBIN 21.7 pg (26.0-34.0); MEAN CORPUSCULAR VOLUME 68 fL (80-100); MONOCYTES # (AUTO) 1.3 K/uL (0.1-1.0); MONOCYTES % (AUTO) 9.4 % (2.0-9.0); NEUTROPHILS # (AUTO) 10.5 K/uL (1.8-7.7); NEUTROPHILS % (AUTO) 75.8 % (40.0-70.0); PLATELET COUNT (AUTO) 185 K/uL (150-450); RED BLOOD CELL COUNT(AUTO) 2.78 MIL/uL (4.00-5.20); RED CELL DISTRIBUTION WIDTH 32.5 % (11.5-14.5)
[2022-06-02 05:43] LABS: ALANINE AMINOTRANSFERASE 43 U/L (12-78); ALBUMIN 1.2 g/dL (3.4-5.0); ALKALINE PHOSPHATASE 134 U/L (46-116); ANION GAP 6 mmol/L (8-16); ASPARTATE AMINOTRANSFERASE 68 U/L (15-37); BILIRUBIN,TOTAL 0.3 mg/dL (0.1-1.0); CARBON DIOXIDE 26 mmol/L (22-29); CHLORIDE 107 mmol/L (98-107); CREATININE 0.72 mg/dL (0.60-1.30); GLUCOSE,RANDOM 132 mg/dL (70-110); POTASSIUM 3.5 mmol/L (3.5-5.1); SODIUM SERUM 139 mmol/L (136-145); TOTAL PROTEIN, SERUM 5.3 g/dL (6.4-8.2); UREA NITROGEN, BLOOD 15 mg/dL (7-18)
[2022-06-02 05:53] LABS: GLOMERULAR FILTR. RATE CALC > 60 mL/min (>60)
[2022-06-02] MEDS: PROPOFOL 1000 MG/ISO-OSM 100 ML IV PRN ×3 (06:00→23:08)
[2022-06-02] MEDS: FentaNYL CIT 1000MCG/0.9% NACL 100 ML IV PRN ×3 (06:01→22:00)
[2022-06-02] MEDS: DEXMEDETOMIDINE HCL 400 MCG in SODIUM CHLORIDE 0.9% 96 ML IV PRN ×4 (06:01→18:59)
[2022-06-02] MEDS: LEVOTHYROXINE SODIUM 100 MCG TABLET NG SCH (06:02)
[2022-06-02 06:09] LABS: HEMATOCRIT 18.8 % (36-46)
[2022-06-02] MEDS: HEPARIN SODIUM 25000 UNITS/D5W 250 ML IV PRN ×2 (06:52→21:49)
[2022-06-02 08:00] VITALS: BP 113/65
[2022-06-02] MEDS: AMINO ACIDS/PROTEIN HYDROLYS 30 ML TUBE NG SCH ×3 (08:00→17:30)
[2022-06-02 09:33] LABS: INR 1.1 (0.9-1.1); PROTHROMBIN TIME 11.4 SEC (9.4-11.6)
[2022-06-02] MEDS: DOCUSATE SODIUM 100 MG/10 ML LIQUID UDCUP NG SCH ×2 (10:55→21:33)
[2022-06-02] MEDS: PANTOPRAZOLE SODIUM 40 MG/VIAL IVP SCH ×2 (10:55→21:32)
[2022-06-02] MEDS: LEVOFLOXACIN 750 MG/D5% WATER 150 ML IV SCH (10:57)
[2022-06-02] MEDS: ETHYL ALCOHOL 62% ANTISEPTIC NASAL SANITIZER 0.6 ML AMPUL NASAL SCH ×2 (11:02→21:33)
[2022-06-02 12:00] VITALS: BP 122/63
[2022-06-02] MEDS: POLYETHYLENE GLYCOL 3350 17 GM PACKET PO SCH (14:45)
[2022-06-02] MEDS ORDERED: BISACODYL 10 MG RECTAL RECTAL SUPPOSITORY PR PRN (14:45)
[2022-06-02 14:59] LABS: BASOPHILS % (AUTO) 0.6 % (0.0-2.0); EOSINOPHILS % (AUTO) 3.3 % (1.0-6.0); HEMATOCRIT 22.9 % (36-46); LYMPHOCYTES # (AUTO) 1.1 K/uL (1.0-4.8); LYMPHOCYTES % (AUTO) 8.5 % (22.0-44.0); MEAN CORPUSCULAR HEMOGLOBIN 21.6 pg (26.0-34.0); MEAN CORPUSCULAR HGB CONC 30.7 G/dL (31.0-37.0); MEAN CORPUSCULAR VOLUME 70 fL (80-100); MONOCYTES # (AUTO) 1.2 K/uL (0.1-1.0); MONOCYTES % (AUTO) 9.3 % (2.0-9.0); NEUTROPHILS # (AUTO) 10.2 K/uL (1.8-7.7); NEUTROPHILS % (AUTO) 78.3 % (40.0-70.0); PLATELET COUNT (AUTO) 179 K/uL (150-450); RED BLOOD CELL COUNT(AUTO) 3.27 MIL/uL (4.00-5.20); RED CELL DISTRIBUTION WIDTH 31.2 % (11.5-14.5)
[2022-06-02 16:00] VITALS: BP 98/49
[2022-06-02 20:00] VITALS: BP 94/49
[2022-06-03] VITALS: BP 134/71
[2022-06-03] MEDS: SODIUM CHLORIDE 0.9% 1,000 ML IV SCH (02:56)
[2022-06-03] MEDS: PROPOFOL 1000 MG/ISO-OSM 100 ML IV PRN ×4 (02:57→23:45)
[2022-06-03 04:00] VITALS: BP 156/88
[2022-06-03] MEDS: DEXMEDETOMIDINE HCL 400 MCG in SODIUM CHLORIDE 0.9% 96 ML IV PRN ×6 (04:58→21:24)
[2022-06-03 05:31] LABS: BASOPHILS % (AUTO) 0.9 % (0.0-2.0); EOSINOPHILS % (AUTO) 2.4 % (1.0-6.0); HEMATOCRIT 24.3 % (36-46); HEMOGLOBIN 7.7 g/dL (12.0-16.0); LYMPHOCYTES % (AUTO) 10.1 % (22.0-44.0); MEAN CORPUSCULAR HEMOGLOBIN 21.9 pg (26.0-34.0); MEAN CORPUSCULAR HGB CONC 31.6 G/dL (31.0-37.0); MEAN CORPUSCULAR VOLUME 70 fL (80-100); MONOCYTES # (AUTO) 1.6 K/uL (0.1-1.0); MONOCYTES % (AUTO) 8.3 % (2.0-9.0); NEUTROPHILS # (AUTO) 15.2 K/uL (1.8-7.7); NEUTROPHILS % (AUTO) 78.3 % (40.0-70.0); PLATELET COUNT (AUTO) 267 K/uL (150-450); RED CELL DISTRIBUTION WIDTH 31.6 % (11.5-14.5)
[2022-06-03 05:46] LABS: ALANINE AMINOTRANSFERASE 46 U/L (12-78); ALBUMIN 1.4 g/dL (3.4-5.0); ALKALINE PHOSPHATASE 147 U/L (46-116); ANION GAP 6 mmol/L (8-16); ASPARTATE AMINOTRANSFERASE 56 U/L (15-37); BILIRUBIN,TOTAL 0.5 mg/dL (0.1-1.0); CARBON DIOXIDE 25 mmol/L (22-29); CHLORIDE 105 mmol/L (98-107); CREATININE 0.89 mg/dL (0.60-1.30); GLUCOSE,RANDOM 125 mg/dL (70-110); POTASSIUM 3.5 mmol/L (3.5-5.1); SODIUM SERUM 136 mmol/L (136-145); TOTAL PROTEIN, SERUM 5.8 g/dL (6.4-8.2); UREA NITROGEN, BLOOD 20 mg/dL (7-18)
[2022-06-03 05:49] LABS: GLOMERULAR FILTR. RATE CALC > 60 mL/min (>60)
[2022-06-03] MEDS: LEVOTHYROXINE SODIUM 100 MCG TABLET NG SCH (06:00)
[2022-06-03] MEDS: FentaNYL CIT 1000MCG/0.9% NACL 100 ML IV PRN ×3 (06:30→23:44)
[2022-06-03 06:32] LABS: INR 1.1 (0.9-1.1); PROTHROMBIN TIME 11.4 SEC (9.4-11.6)
[2022-06-03] MEDS: HEPARIN SODIUM,PORCINE 5,000 UNITS/ML VIAL IVP PRN (07:47)
[2022-06-03 08:00] VITALS: BP 107/46
[2022-06-03] MEDS: DOCUSATE SODIUM 100 MG/10 ML LIQUID UDCUP NG SCH ×2 (08:41→21:25)
[2022-06-03] MEDS: POLYETHYLENE GLYCOL 3350 17 GM PACKET PO SCH (08:42)
[2022-06-03] MEDS: PANTOPRAZOLE SODIUM 40 MG/VIAL IVP SCH ×2 (08:42→21:23)
[2022-06-03] MEDS: ETHYL ALCOHOL 62% ANTISEPTIC NASAL SANITIZER 0.6 ML AMPUL NASAL SCH ×2 (08:42→21:24)
[2022-06-03] MEDS: AMINO ACIDS/PROTEIN HYDROLYS 30 ML TUBE NG SCH ×3 (08:45→17:55)
[2022-06-03] MEDS: FUROSEMIDE 40 MG/4 ML VIAL IVP SCH (09:41)
[2022-06-03] MEDS: LEVOFLOXACIN 750 MG/D5% WATER 150 ML IV SCH (09:42)
[2022-06-03 12:00] VITALS: BP 160/68
[2022-06-03] MEDS: ACETAMINOPHEN 650 MG/20.3 ML SOLUTION UDCUP NG PRN (13:00)
[2022-06-03 16:00] VITALS: BP 111/46
[2022-06-03] MEDS: HEPARIN SODIUM 25000 UNITS/D5W 250 ML IV PRN (16:39)
[2022-06-03 20:00] VITALS: BP 116/45
[2022-06-03] MEDS ORDERED: SODIUM CHLORIDE 0.9% 1,000 ML ONE (22:04)
[2022-06-04] VITALS (12 sets, daily range): BP systolic 101–164; BP diastolic 45–68
[2022-06-04] MEDS: HEPARIN SODIUM 25000 UNITS/D5W 250 ML IV PRN ×2 (00:07→12:17)
[2022-06-04] MEDS: DEXMEDETOMIDINE HCL 400 MCG in SODIUM CHLORIDE 0.9% 96 ML IV PRN ×4 (03:02→23:41)
[2022-06-04 05:51] LABS: BASOPHILS % (AUTO) 0.5 % (0.0-2.0); EOSINOPHILS % (AUTO) 2.1 % (1.0-6.0); LYMPHOCYTES # (AUTO) 1.8 K/uL (1.0-4.8); LYMPHOCYTES % (AUTO) 10.1 % (22.0-44.0); MEAN CORPUSCULAR HEMOGLOBIN 21.8 pg (26.0-34.0); MEAN CORPUSCULAR HGB CONC 30.7 G/dL (31.0-37.0); MEAN CORPUSCULAR VOLUME 71 fL (80-100); MONOCYTES # (AUTO) 1.4 K/uL (0.1-1.0); MONOCYTES % (AUTO) 8.2 % (2.0-9.0); NEUTROPHILS # (AUTO) 13.7 K/uL (1.8-7.7); NEUTROPHILS % (AUTO) 79.1 % (40.0-70.0); PLATELET COUNT (AUTO) 263 K/uL (150-450); RED CELL DISTRIBUTION WIDTH 31.1 % (11.5-14.5)
[2022-06-04 06:00] LABS: ALBUMIN 1.1 g/dL (3.4-5.0); BILIRUBIN,TOTAL 0.3 mg/dL (0.1-1.0); CALCIUM, TOTAL 7.9 mg/dL (8.8-10.5); CREATININE 0.95 mg/dL (0.60-1.30); HEMATOCRIT 20.6 % (36-46); HEMOGLOBIN 6.3 g/dL (12.0-16.0); POTASSIUM 3.5 mmol/L (3.5-5.1); TOTAL PROTEIN, SERUM 5.1 g/dL (6.4-8.2)
[2022-06-04] MEDS ORDERED: SODIUM CHLORIDE 0.9% 250 ML IV ONE (06:20)
[2022-06-04] MEDS: LEVOTHYROXINE SODIUM 100 MCG TABLET NG SCH (06:26)
[2022-06-04] MEDS: AMINO ACIDS/PROTEIN HYDROLYS 30 ML TUBE NG SCH ×3 (08:00→17:43)
[2022-06-04] MEDS: PANTOPRAZOLE SODIUM 40 MG/VIAL IVP SCH ×2 (08:47→20:05)
[2022-06-04] MEDS: FUROSEMIDE 40 MG/4 ML VIAL IVP SCH (08:47)
[2022-06-04] MEDS: PROPOFOL 1000 MG/ISO-OSM 100 ML IV PRN ×3 (08:49→18:36)
[2022-06-04] MEDS: ETHYL ALCOHOL 62% ANTISEPTIC NASAL SANITIZER 0.6 ML AMPUL NASAL SCH ×2 (08:50→20:06)
[2022-06-04] MEDS: POLYETHYLENE GLYCOL 3350 17 GM PACKET PO SCH (08:50)
[2022-06-04] MEDS: DOCUSATE SODIUM 100 MG/10 ML LIQUID UDCUP NG SCH ×2 (08:50→20:07)
[2022-06-04] MEDS: LEVOFLOXACIN 750 MG/D5% WATER 150 ML IV SCH (10:44)
[2022-06-04] MEDS: FentaNYL CIT 1000MCG/0.9% NACL 100 ML IV PRN ×2 (10:44→18:35)
[2022-06-04] MEDS: ACETAMINOPHEN 650 MG/20.3 ML SOLUTION UDCUP NG PRN (20:06)
[2022-06-05] VITALS (11 sets, daily range): BP systolic 111–150; BP diastolic 43–68
[2022-06-05] MEDS: HEPARIN SODIUM 25000 UNITS/D5W 250 ML IV PRN ×2 (00:51→11:06)
[2022-06-05] MEDS: FentaNYL CIT 1000MCG/0.9% NACL 100 ML IV PRN ×2 (04:43→17:46)
[2022-06-05] MEDS: PROPOFOL 1000 MG/ISO-OSM 100 ML IV PRN ×3 (04:51→15:46)
[2022-06-05] MEDS ORDERED: SODIUM CHLORIDE 0.9% 250 ML IV ONE ×2 (05:25→16:55)
[2022-06-05] MEDS: LEVOTHYROXINE SODIUM 100 MCG TABLET NG SCH (05:26)
[2022-06-05 06:18] LABS: BASOPHILS % (AUTO) 0.4 % (0.0-2.0); EOSINOPHILS % (AUTO) 1.4 % (1.0-6.0); HEMATOCRIT 22.4 % (36-46); HEMOGLOBIN 7.1 g/dL (12.0-16.0); LYMPHOCYTES # (AUTO) 1.8 K/uL (1.0-4.8); LYMPHOCYTES % (AUTO) 8.7 % (22.0-44.0); MEAN CORPUSCULAR HEMOGLOBIN 22.8 pg (26.0-34.0); MEAN CORPUSCULAR HGB CONC 31.6 G/dL (31.0-37.0); MEAN CORPUSCULAR VOLUME 72 fL (80-100); MONOCYTES # (AUTO) 1.7 K/uL (0.1-1.0); MONOCYTES % (AUTO) 8.1 % (2.0-9.0); NEUTROPHILS # (AUTO) 16.9 K/uL (1.8-7.7); NEUTROPHILS % (AUTO) 81.4 % (40.0-70.0); PLATELET COUNT (AUTO) 391 K/uL (150-450); RED CELL DISTRIBUTION WIDTH 30.2 % (11.5-14.5)
[2022-06-05 06:23] LABS: CALCIUM, TOTAL 8.3 mg/dL (8.8-10.5); CREATININE 0.91 mg/dL (0.60-1.30); POTASSIUM 3.6 mmol/L (3.5-5.1)
[2022-06-05] MEDS: DEXMEDETOMIDINE HCL 400 MCG in SODIUM CHLORIDE 0.9% 96 ML IV PRN ×3 (07:22→20:59)
[2022-06-05] MEDS: AMINO ACIDS/PROTEIN HYDROLYS 30 ML TUBE NG SCH ×3 (07:49→17:46)
[2022-06-05] MEDS: DOCUSATE SODIUM 100 MG/10 ML LIQUID UDCUP NG SCH ×2 (07:49→20:52)
[2022-06-05] MEDS: FUROSEMIDE 40 MG/4 ML VIAL IVP SCH (07:50)
[2022-06-05] MEDS: POLYETHYLENE GLYCOL 3350 17 GM PACKET PO SCH (07:50)
[2022-06-05] MEDS: ETHYL ALCOHOL 62% ANTISEPTIC NASAL SANITIZER 0.6 ML AMPUL NASAL SCH ×2 (07:50→20:52)
[2022-06-05] MEDS: PANTOPRAZOLE SODIUM 40 MG/VIAL IVP SCH ×2 (07:50→20:52)
[2022-06-05 09:28] LABS: ABG BASE EXCESS -4.6 mmol/L (-2.0-3.0); ABG CARBOXYHEMOGLOBIN 1.5 % (0.0-1.5); ABG HCO3 20.9 mmol/L (22.0-26.0); ABG METHEMOGLOBIN 0.3 % (0.0-1.5); ABG OXYGEN CONTENT 9.7 mL/dL (15.0-23.0); ABG OXYHEMOGLOBIN 92.3 % (94.0-100.0); ABG PCO2 45 mmHg (35-45); ABG PH 7.302 (7.35-7.450); PO2, ARTERIAL BG 77.2 mmHg (75.0-83.0); SOURCE, BLOOD GAS ARTERIAL; TEMPERATURE, FAHRENHEIT, BG 99.7 FAHREN (96.0-98.6)
[2022-06-05 09:29] LABS: ABG TOTAL HEMOGLOBIN 7.4 G/dL (12.0-18.0); SITE, BLOOD GAS RT RADIAL
[2022-06-05 09:30] LABS: O2 DEVICE,BLOOD GAS VENTILATOR (ROOM AIR); PEEP,BG 5 cm H2O; PRESSURE SUPPORT, BG 8 cm H2O; SPONTANEOUS VT, BG 400 ml; VENT MODE, BG Press. Support Vent. (ROOM AIR)
[2022-06-05] MEDS: LEVOFLOXACIN 750 MG/D5% WATER 150 ML IV SCH (10:04)
[2022-06-05] MEDS ORDERED: SODIUM BICARBONATE [ADULT] 8.4% 50 MEQ/50 ML SYRINGE IVP ONE (10:30)
[2022-06-05 12:07] LABS: ABG BASE EXCESS -2.9 mmol/L (-2.0-3.0); ABG CARBOXYHEMOGLOBIN 1.7 % (0.0-1.5); ABG HCO3 22.2 mmol/L (22.0-26.0); ABG METHEMOGLOBIN 0.3 % (0.0-1.5); ABG OXYGEN CONTENT 9.1 mL/dL (15.0-23.0); ABG OXYGEN SATURATION 97.6 % (95.0-98.0); ABG OXYHEMOGLOBIN 95.6 % (94.0-100.0); ABG PCO2 33 mmHg (35-45); PO2, ARTERIAL BG 82.6 mmHg (75.0-83.0); SOURCE, BLOOD GAS ARTERIAL; TEMPERATURE, FAHRENHEIT, BG 95.5 FAHREN (96.0-98.6)
[2022-06-05 12:09] LABS: ABG TOTAL HEMOGLOBIN 6.6 G/dL (12.0-18.0); O2 DEVICE,BLOOD GAS VENTILATOR (ROOM AIR); SITE, BLOOD GAS RT RADIAL; VENT MODE, BG PAV+ / ASV (ROOM AIR)
[2022-06-05 12:10] LABS: PEEP,BG 5 cm H2O; SPONTANEOUS VT, BG 467 ml
[2022-06-05 12:43] LABS: MEAN CORPUSCULAR HEMOGLOBIN 22.2 pg (26.0-34.0); MONOCYTES # (AUTO) 1.6 K/uL (0.1-1.0)
[2022-06-05 12:46] LABS: BASOPHILS % (AUTO) 0.4 % (0.0-2.0); EOSINOPHILS % (AUTO) 0.2 % (1.0-6.0); LYMPHOCYTES # (AUTO) 0.9 K/uL (1.0-4.8); LYMPHOCYTES % (AUTO) 4.4 % (22.0-44.0); MEAN CORPUSCULAR HGB CONC 30.9 G/dL (31.0-37.0); MEAN CORPUSCULAR VOLUME 72 fL (80-100); MONOCYTES % (AUTO) 7.4 % (2.0-9.0); NEUTROPHILS # (AUTO) 18.5 K/uL (1.8-7.7); PLATELET COUNT (AUTO) 386 K/uL (150-450); RED BLOOD CELL COUNT(AUTO) 2.68 MIL/uL (4.00-5.20); RED CELL DISTRIBUTION WIDTH 30.3 % (11.5-14.5)
[2022-06-05 12:51] LABS: HEMATOCRIT 19.3 % (36-46); NEUTROPHILS % (AUTO) 87.6 % (40.0-70.0)
[2022-06-05] MEDS ORDERED: SODIUM CHLORIDE 0.9% 500 ML IV ONE (12:59)
[2022-06-06] VITALS (17 sets, daily range): BP systolic 117–170; BP diastolic 49–71
[2022-06-06] MEDS: PROPOFOL 1000 MG/ISO-OSM 100 ML IV PRN ×3 (00:43→14:16)
[2022-06-06] MEDS: FentaNYL CIT 1000MCG/0.9% NACL 100 ML IV PRN ×2 (01:42→12:11)
[2022-06-06] MEDS: DEXMEDETOMIDINE HCL 400 MCG in SODIUM CHLORIDE 0.9% 96 ML IV PRN ×3 (03:52→22:48)
[2022-06-06] MEDS: LEVOTHYROXINE SODIUM 100 MCG TABLET NG SCH (06:36)
[2022-06-06 07:26] LABS: BASOPHILS % (AUTO) 0.7 % (0.0-2.0); EOSINOPHILS % (AUTO) 1.1 % (1.0-6.0); LYMPHOCYTES # (AUTO) 1.2 K/uL (1.0-4.8); LYMPHOCYTES % (AUTO) 5.3 % (22.0-44.0); MEAN CORPUSCULAR HGB CONC 32.6 G/dL (31.0-37.0); MEAN CORPUSCULAR VOLUME 74 fL (80-100); MONOCYTES % (AUTO) 8.5 % (2.0-9.0); NEUTROPHILS # (AUTO) 19.8 K/uL (1.8-7.7); NEUTROPHILS % (AUTO) 84.4 % (40.0-70.0); PLATELET COUNT (AUTO) 461 K/uL (150-450); RED BLOOD CELL COUNT(AUTO) 2.41 MIL/uL (4.00-5.20); RED CELL DISTRIBUTION WIDTH 29.5 % (11.5-14.5)
[2022-06-06 07:48] LABS: HEMATOCRIT 17.7 % (36-46); HEMOGLOBIN 5.8 g/dL (12.0-16.0)
[2022-06-06 08:08] LABS: ALBUMIN 1.1 g/dL (3.4-5.0); BILIRUBIN,TOTAL 0.3 mg/dL (0.1-1.0); CALCIUM, TOTAL 8.1 mg/dL (8.8-10.5); CREATININE 1.27 mg/dL (0.60-1.30); POTASSIUM 3.8 mmol/L (3.5-5.1); TOTAL PROTEIN, SERUM 5.3 g/dL (6.4-8.2)
[2022-06-06] MEDS: FUROSEMIDE 40 MG/4 ML VIAL IVP SCH (09:06)
[2022-06-06] MEDS: AMINO ACIDS/PROTEIN HYDROLYS 30 ML TUBE NG SCH ×3 (09:06→18:56)
[2022-06-06] MEDS: PANTOPRAZOLE SODIUM 40 MG/VIAL IVP SCH ×2 (09:06→21:04)
[2022-06-06] MEDS: POLYETHYLENE GLYCOL 3350 17 GM PACKET PO SCH (09:07)
[2022-06-06] MEDS: DOCUSATE SODIUM 100 MG/10 ML LIQUID UDCUP NG SCH ×2 (09:07→21:04)
[2022-06-06] MEDS: ETHYL ALCOHOL 62% ANTISEPTIC NASAL SANITIZER 0.6 ML AMPUL NASAL SCH ×2 (09:07→21:04)
[2022-06-06] MEDS: LEVOFLOXACIN 750 MG/D5% WATER 150 ML IV SCH (09:08)
[2022-06-06] MEDS ORDERED: SODIUM CHLORIDE 0.9% 500 ML IV ONE (10:06)
[2022-06-06] MEDS ORDERED: SODIUM CHLORIDE 0.9% 250 ML IV ONE (20:59)
[2022-06-07] VITALS (11 sets, daily range): BP systolic 105–175; BP diastolic 53–75
[2022-06-07] MEDS: PROPOFOL 1000 MG/ISO-OSM 100 ML IV PRN ×3 (03:19→22:05)
[2022-06-07] MEDS: FentaNYL CIT 1000MCG/0.9% NACL 100 ML IV PRN ×2 (04:18→22:07)
[2022-06-07 04:44] LABS: APPEARANCE,URINE TURBID (CLEAR); BILIRUBIN,URINE NEGATIVE (NEGATIVE); GLUCOSE, URINE (UA) NEGATIVE (NEGATIVE); KETONES,URINE NEGATIVE (NEGATIVE); LEUKOCYTE ESTERASE ,URINE LARGE (NEGATIVE); NITRATE,URINE NEGATIVE (NEGATIVE); OCCULT BLOOD,URINE TRACE (NEGATIVE); PH,URINE 5.5 (5.0-8.0); PROTEIN,URINE 100-200,SEE CONFIRM mg/dL (NEGATIVE); SPECIFIC GRAVITIY, URINE 1.017 (1.003-1.030)
[2022-06-07 04:54] LABS: SULFOSALICYLIC ACID,URINE 1+ (Negative)
[2022-06-07 04:55] LABS: BACTERIA,URINE Many /HPF (None Seen); RBC,URINE 0-2 /HPF (0-2)
[2022-06-07 04:56] LABS: SQUAMOUS EPITHELIAL CELL,UR None Seen /LPF (None Seen)
[2022-06-07 05:37] LABS: BASOPHILS % (AUTO) 0.2 % (0.0-2.0); EOSINOPHILS % (AUTO) 0.4 % (1.0-6.0); HEMATOCRIT 21.5 % (36-46); LYMPHOCYTES # (AUTO) 0.8 K/uL (1.0-4.8); LYMPHOCYTES % (AUTO) 3.8 % (22.0-44.0); MEAN CORPUSCULAR HEMOGLOBIN 25.1 pg (26.0-34.0); MEAN CORPUSCULAR VOLUME 79 fL (80-100); MONOCYTES # (AUTO) 1.7 K/uL (0.1-1.0); MONOCYTES % (AUTO) 8.3 % (2.0-9.0); NEUTROPHILS # (AUTO) 17.9 K/uL (1.8-7.7); PLATELET COUNT (AUTO) 492 K/uL (150-450); RED BLOOD CELL COUNT(AUTO) 2.74 MIL/uL (4.00-5.20)
[2022-06-07 05:53] LABS: ALBUMIN 1.1 g/dL (3.4-5.0); BILIRUBIN,TOTAL 0.4 mg/dL (0.1-1.0); CALCIUM, TOTAL 8.3 mg/dL (8.8-10.5); CREATININE 1.44 mg/dL (0.60-1.30); POTASSIUM 4.4 mmol/L (3.5-5.1); TOTAL PROTEIN, SERUM 5.2 g/dL (6.4-8.2)
[2022-06-07 06:12] LABS: HEMOGLOBIN 6.9 g/dL (12.0-16.0); NEUTROPHILS % (AUTO) 87.3 % (40.0-70.0)
[2022-06-07] MEDS: LEVOTHYROXINE SODIUM 100 MCG TABLET NG SCH (06:24)
[2022-06-07] MEDS: AMINO ACIDS/PROTEIN HYDROLYS 30 ML TUBE NG SCH ×3 (08:50→18:13)
[2022-06-07] MEDS: POLYETHYLENE GLYCOL 3350 17 GM PACKET PO SCH (08:51)
[2022-06-07] MEDS: DOCUSATE SODIUM 100 MG/10 ML LIQUID UDCUP NG SCH ×2 (08:51→21:00)
[2022-06-07] MEDS: FUROSEMIDE 40 MG/4 ML VIAL IVP SCH (08:52)
[2022-06-07] MEDS: PANTOPRAZOLE SODIUM 40 MG/VIAL IVP SCH ×2 (08:52→21:56)
[2022-06-07] MEDS: ETHYL ALCOHOL 62% ANTISEPTIC NASAL SANITIZER 0.6 ML AMPUL NASAL SCH ×2 (08:52→21:56)
[2022-06-07] MEDS ORDERED: SODIUM CHLORIDE 0.9% 250 ML IV ONE (08:52)
[2022-06-07] MEDS: LEVOFLOXACIN 750 MG/D5% WATER 150 ML IV SCH (10:10)
[2022-06-07] MEDS ORDERED: SODIUM CHLORIDE 0.45% 1,000 ML IV ONE (11:15)
[2022-06-07] MEDS: DEXMEDETOMIDINE HCL 400 MCG in SODIUM CHLORIDE 0.9% 96 ML IV PRN ×2 (11:57→22:06)
[2022-06-07 14:32] LABS: ABG BASE EXCESS 0.4 mmol/L (-2.0-3.0); ABG HCO3 24.6 mmol/L (22.0-26.0); ABG METHEMOGLOBIN 0.3 % (0.0-1.5); ABG OXYGEN CONTENT 12.4 mL/dL (15.0-23.0); ABG OXYGEN SATURATION 96.6 % (95.0-98.0); ABG OXYHEMOGLOBIN 95.3 % (94.0-100.0); ABG PCO2 48 mmHg (35-45); ABG PH 7.349 (7.35-7.450); ABG TOTAL HEMOGLOBIN 9.2 G/dL (12.0-18.0); SITE, BLOOD GAS LFT RADIAL; SOURCE, BLOOD GAS ARTERIAL; TEMPERATURE, FAHRENHEIT, BG 99.1 FAHREN (96.0-98.6)
[2022-06-07 14:33] LABS: ABG A-A DIFF O2 145.2 mmHg (10-20.0); O2 DEVICE,BLOOD GAS VENTILATOR (ROOM AIR); PEEP,BG 5 cm H2O; VENT MODE, BG AC/VC+ (ROOM AIR); VT, ABG 420 ml
[2022-06-07 14:36] LABS: INSPIRATORY TIME, BG 0.9 SEC
[2022-06-07] MEDS ORDERED: IOHEXOL 350 MG/ML 100 ML VIAL ONE (20:00)
[2022-06-07] MEDS ORDERED: SODIUM CHLORIDE 0.9% 100 ML ONE (20:01)
[2022-06-08] VITALS: BP 143/64
[2022-06-08] MEDS: MetroNIDAZOLE 500 MG TABLET PO SCH ×3 (00:32→16:48)
[2022-06-08 04:00] VITALS: BP 157/67
[2022-06-08 05:42] LABS: C-REACTIVE PROTEIN QUANT 18.65 mg/dL (0.00-0.30); CALCIUM, TOTAL 8.6 mg/dL (8.8-10.5); CREATININE 1.23 mg/dL (0.60-1.30); POTASSIUM 4.2 mmol/L (3.5-5.1)
[2022-06-08] MEDS: LEVOTHYROXINE SODIUM 100 MCG TABLET NG SCH (06:22)
[2022-06-08 08:00] VITALS: BP 142/53
[2022-06-08] MEDS: AMINO ACIDS/PROTEIN HYDROLYS 30 ML TUBE NG SCH ×3 (08:52→16:49)
[2022-06-08] MEDS: ETHYL ALCOHOL 62% ANTISEPTIC NASAL SANITIZER 0.6 ML AMPUL NASAL SCH ×2 (08:53→21:38)
[2022-06-08] MEDS: PANTOPRAZOLE SODIUM 40 MG/VIAL IVP SCH ×2 (08:53→21:38)
[2022-06-08] MEDS: FUROSEMIDE 40 MG/4 ML VIAL IVP SCH (08:53)
[2022-06-08] MEDS: POLYETHYLENE GLYCOL 3350 17 GM PACKET PO SCH (08:54)
[2022-06-08] MEDS: DOCUSATE SODIUM 100 MG/10 ML LIQUID UDCUP NG SCH ×2 (08:54→21:00)
[2022-06-08 08:56] LABS: BASOPHILS % (AUTO) 0.6 % (0.0-2.0); EOSINOPHILS % (AUTO) 2.4 % (1.0-6.0); HEMATOCRIT 25.7 % (36-46); HEMOGLOBIN 8.1 g/dL (12.0-16.0); LYMPHOCYTES # (AUTO) 1.1 K/uL (1.0-4.8); LYMPHOCYTES % (AUTO) 7.5 % (22.0-44.0); MEAN CORPUSCULAR HEMOGLOBIN 25.1 pg (26.0-34.0); MEAN CORPUSCULAR HGB CONC 31.7 G/dL (31.0-37.0); MEAN CORPUSCULAR VOLUME 79 fL (80-100); MONOCYTES # (AUTO) 1.5 K/uL (0.1-1.0); MONOCYTES % (AUTO) 10.1 % (2.0-9.0); NEUTROPHILS # (AUTO) 11.7 K/uL (1.8-7.7); NEUTROPHILS % (AUTO) 79.4 % (40.0-70.0); PLATELET COUNT (AUTO) 544 K/uL (150-450); RED BLOOD CELL COUNT(AUTO) 3.24 MIL/uL (4.00-5.20); RED CELL DISTRIBUTION WIDTH 26.4 % (11.5-14.5)
[2022-06-08] MEDS: LEVOFLOXACIN 750 MG/D5% WATER 150 ML IV SCH (08:57)
[2022-06-08] MEDS: PROPOFOL 1000 MG/ISO-OSM 100 ML IV PRN (10:34)
[2022-06-08] MEDS: DEXMEDETOMIDINE HCL 400 MCG in SODIUM CHLORIDE 0.9% 96 ML IV PRN ×2 (10:35→19:59)
[2022-06-08 12:00] VITALS: BP 152/60
[2022-06-08] MEDS: FentaNYL CIT 1000MCG/0.9% NACL 100 ML IV PRN (13:44)
[2022-06-08 16:00] VITALS: BP 144/69
[2022-06-08] MEDS: ACETAMINOPHEN 650 MG/20.3 ML SOLUTION UDCUP NG PRN (16:49)
[2022-06-08 20:00] VITALS: BP 108/53
[2022-06-09] VITALS: BP 133/52
[2022-06-09] MEDS: PROPOFOL 1000 MG/ISO-OSM 100 ML IV PRN ×3 (00:34→22:50)
[2022-06-09] MEDS: MetroNIDAZOLE 500 MG TABLET PO SCH ×3 (00:43→16:52)
[2022-06-09] MEDS ORDERED: SODIUM CHLORIDE 0.9% 250 ML IV ONE (02:02)
[2022-06-09 04:00] VITALS: BP 142/58
[2022-06-09] MEDS: FentaNYL CIT 1000MCG/0.9% NACL 100 ML IV PRN ×2 (05:15→17:27)
[2022-06-09 05:16] LABS: BASOPHILS % (AUTO) 0.9 % (0.0-2.0); EOSINOPHILS % (AUTO) 3.3 % (1.0-6.0); HEMATOCRIT 25.7 % (36-46); HEMOGLOBIN 8.2 g/dL (12.0-16.0); LYMPHOCYTES # (AUTO) 0.9 K/uL (1.0-4.8); LYMPHOCYTES % (AUTO) 7.4 % (22.0-44.0); MEAN CORPUSCULAR HEMOGLOBIN 25.7 pg (26.0-34.0); MEAN CORPUSCULAR HGB CONC 32.1 G/dL (31.0-37.0); MEAN CORPUSCULAR VOLUME 80 fL (80-100); MONOCYTES # (AUTO) 1.3 K/uL (0.1-1.0); MONOCYTES % (AUTO) 11.2 % (2.0-9.0); NEUTROPHILS # (AUTO) 9.2 K/uL (1.8-7.7); NEUTROPHILS % (AUTO) 77.2 % (40.0-70.0); PLATELET COUNT (AUTO) 528 K/uL (150-450); RED BLOOD CELL COUNT(AUTO) 3.21 MIL/uL (4.00-5.20); RED CELL DISTRIBUTION WIDTH 26.9 % (11.5-14.5)
[2022-06-09 05:30] LABS: ALBUMIN 1.2 g/dL (3.4-5.0); BILIRUBIN,TOTAL 0.4 mg/dL (0.1-1.0); C-REACTIVE PROTEIN QUANT 14.25 mg/dL (0.00-0.30); CALCIUM, TOTAL 8.4 mg/dL (8.8-10.5); POTASSIUM 3.7 mmol/L (3.5-5.1); TOTAL PROTEIN, SERUM 5.2 g/dL (6.4-8.2)
[2022-06-09] MEDS: LEVOTHYROXINE SODIUM 100 MCG TABLET NG SCH (05:38)
[2022-06-09] MEDS: DEXMEDETOMIDINE HCL 400 MCG in SODIUM CHLORIDE 0.9% 96 ML IV PRN ×2 (06:02→18:48)
[2022-06-09 08:00] VITALS: BP 172/70
[2022-06-09] MEDS: LEVOFLOXACIN 750 MG/D5% WATER 150 ML IV SCH (08:41)
[2022-06-09] MEDS: FUROSEMIDE 40 MG/4 ML VIAL IVP SCH (08:42)
[2022-06-09] MEDS: DOCUSATE SODIUM 100 MG/10 ML LIQUID UDCUP NG SCH ×2 (08:42→21:00)
[2022-06-09] MEDS: PANTOPRAZOLE SODIUM 40 MG/VIAL IVP SCH ×2 (08:42→21:09)
[2022-06-09] MEDS: ETHYL ALCOHOL 62% ANTISEPTIC NASAL SANITIZER 0.6 ML AMPUL NASAL SCH ×2 (08:42→21:09)
[2022-06-09] MEDS: POLYETHYLENE GLYCOL 3350 17 GM PACKET PO SCH (08:43)
[2022-06-09] MEDS: AMINO ACIDS/PROTEIN HYDROLYS 30 ML TUBE NG SCH ×3 (08:43→16:52)
[2022-06-09 12:00] VITALS: BP 118/45
[2022-06-09 16:00] VITALS: BP 145/61
[2022-06-09 20:00] VITALS: BP 141/68
[2022-06-10] VITALS: BP 164/68
[2022-06-10] MEDS: MetroNIDAZOLE 500 MG TABLET PO SCH ×3 (00:05→15:55)
[2022-06-10 01:46] LABS: GLUCOSE,POINT OF CARE 98 MG/DL (70-110)
[2022-06-10] MEDS: FentaNYL CIT 1000MCG/0.9% NACL 100 ML IV PRN ×3 (02:56→17:43)
[2022-06-10 04:00] VITALS: BP 124/48
[2022-06-10] MEDS: PROPOFOL 1000 MG/ISO-OSM 100 ML IV PRN ×4 (05:55→23:39)
[2022-06-10] MEDS: LEVOTHYROXINE SODIUM 100 MCG TABLET NG SCH (05:57)
[2022-06-10 06:06] LABS: BASOPHILS % (AUTO) 1.1 % (0.0-2.0); EOSINOPHILS % (AUTO) 3.7 % (1.0-6.0); HEMATOCRIT 30.2 % (36-46); HEMOGLOBIN 9.5 g/dL (12.0-16.0); LYMPHOCYTES # (AUTO) 1.2 K/uL (1.0-4.8); LYMPHOCYTES % (AUTO) 10.4 % (22.0-44.0); MEAN CORPUSCULAR HEMOGLOBIN 25.7 pg (26.0-34.0); MEAN CORPUSCULAR HGB CONC 31.6 G/dL (31.0-37.0); MEAN CORPUSCULAR VOLUME 81 fL (80-100); MONOCYTES # (AUTO) 1.6 K/uL (0.1-1.0); MONOCYTES % (AUTO) 13.9 % (2.0-9.0); NEUTROPHILS # (AUTO) 8.3 K/uL (1.8-7.7); NEUTROPHILS % (AUTO) 70.9 % (40.0-70.0); PLATELET COUNT (AUTO) 487 K/uL (150-450); RED BLOOD CELL COUNT(AUTO) 3.71 MIL/uL (4.00-5.20); RED CELL DISTRIBUTION WIDTH 27.2 % (11.5-14.5)
[2022-06-10 06:22] LABS: INR 1.1 (0.9-1.1); PROTHROMBIN TIME 11.3 SEC (9.4-11.6)
[2022-06-10 06:23] LABS: ANION GAP 5 mmol/L (8-16); CALCIUM, TOTAL 8.9 mg/dL (8.8-10.5); CARBON DIOXIDE 30 mmol/L (22-29); CHLORIDE 106 mmol/L (98-107); CREATININE 0.82 mg/dL (0.60-1.30); GLOMERULAR FILTR. RATE CALC > 60 mL/min (>60); GLUCOSE,RANDOM 107 mg/dL (70-110); PHOSPHORUS 4.2 mg/dL (2.5-4.9); POTASSIUM 3.9 mmol/L (3.5-5.1); SODIUM SERUM 141 mmol/L (136-145); UREA NITROGEN, BLOOD 41 mg/dL (7-18)
[2022-06-10] MEDS: AMINO ACIDS/PROTEIN HYDROLYS 30 ML TUBE NG SCH ×3 (07:55→17:30)
[2022-06-10 08:00] VITALS: BP 112/45
[2022-06-10] MEDS: FUROSEMIDE 40 MG/4 ML VIAL IVP SCH (08:46)
[2022-06-10] MEDS: PANTOPRAZOLE SODIUM 40 MG/VIAL IVP SCH ×2 (08:46→22:03)
[2022-06-10] MEDS: DOCUSATE SODIUM 100 MG/10 ML LIQUID UDCUP NG SCH ×2 (08:46→21:00)
[2022-06-10] MEDS: ETHYL ALCOHOL 62% ANTISEPTIC NASAL SANITIZER 0.6 ML AMPUL NASAL SCH ×2 (08:48→22:03)
[2022-06-10] MEDS: POLYETHYLENE GLYCOL 3350 17 GM PACKET PO SCH (08:48)
[2022-06-10] MEDS ORDERED: ROCURONIUM BROMIDE 10 MG/ML 5 ML VIAL IVP ONE (10:30)
[2022-06-10] MEDS: LEVOFLOXACIN 750 MG/D5% WATER 150 ML IV SCH (10:33)
[2022-06-10 12:00] VITALS: BP 168/87
[2022-06-10] MEDS ORDERED: SODIUM BICARBONATE 50 MEQ/50 ML VIAL ONE (14:15)
[2022-06-10] MEDS ORDERED: IOHEXOL 300 MG/ML 100 ML VIAL ONE ×2 (14:15)
[2022-06-10] MEDS ORDERED: LIDOCAINE/PF 1% 30 ML VIAL ONE (14:15)
[2022-06-10 16:00] VITALS: BP 129/53
[2022-06-10 20:00] VITALS: BP 144/51
[2022-06-11] VITALS (7 sets, daily range): BP systolic 104–173; BP diastolic 47–62
[2022-06-11] MEDS: MetroNIDAZOLE 500 MG TABLET PO SCH ×3 (00:36→17:30)
[2022-06-11 03:16] LABS: GLUCOSE,POINT OF CARE 92 MG/DL (70-110)
[2022-06-11] MEDS: LEVOTHYROXINE SODIUM 100 MCG TABLET NG SCH (06:28)
[2022-06-11 06:46] LABS: GLUCOSE,POINT OF CARE 75 MG/DL (70-110)
[2022-06-11] MEDS: AMINO ACIDS/PROTEIN HYDROLYS 30 ML TUBE NG SCH ×3 (08:00→18:33)
[2022-06-11 08:24] LABS: ALBUMIN 1.3 g/dL (3.4-5.0); BILIRUBIN,TOTAL 0.5 mg/dL (0.1-1.0); C-REACTIVE PROTEIN QUANT 13.38 mg/dL (0.00-0.30); CALCIUM, TOTAL 8.7 mg/dL (8.8-10.5); CREATININE 0.92 mg/dL (0.60-1.30); POTASSIUM 4.2 mmol/L (3.5-5.1); TOTAL PROTEIN, SERUM 5.1 g/dL (6.4-8.2)
[2022-06-11] MEDS: FUROSEMIDE 40 MG/4 ML VIAL IVP SCH (08:25)
[2022-06-11] MEDS: ETHYL ALCOHOL 62% ANTISEPTIC NASAL SANITIZER 0.6 ML AMPUL NASAL SCH ×2 (08:25→21:09)
[2022-06-11] MEDS: PANTOPRAZOLE SODIUM 40 MG/VIAL IVP SCH ×2 (08:25→21:09)
[2022-06-11] MEDS: POLYETHYLENE GLYCOL 3350 17 GM PACKET PO SCH (08:26)
[2022-06-11] MEDS: DOCUSATE SODIUM 100 MG/10 ML LIQUID UDCUP NG SCH ×2 (08:26→21:00)
[2022-06-11] MEDS: FentaNYL CIT 1000MCG/0.9% NACL 100 ML IV PRN ×2 (08:27→15:42)
[2022-06-11] MEDS: PROPOFOL 1000 MG/ISO-OSM 100 ML IV PRN ×2 (08:28→18:34)
[2022-06-11] MEDS ORDERED: DEXTROSE 5%-0.9% SODIUM CHL 1,000 ML IV SCH (11:00)
[2022-06-11] MEDS: LEVOFLOXACIN 750 MG/D5% WATER 150 ML IV SCH (12:00)
[2022-06-11] MEDS ORDERED: SODIUM CHLORIDE 0.9% 250 ML IV ONE (12:03)
[2022-06-11] MEDS ORDERED: HEPARIN SODIUM 1000 UNITS/NS 1,000 ML ONE (15:54)
[2022-06-11] MEDS ORDERED: IOHEXOL 300 MG/ML 100 ML VIAL ONE (15:54)
[2022-06-11] MEDS ORDERED: LIDOCAINE/PF 1% 30 ML VIAL ONE (16:12)
[2022-06-11] MEDS ORDERED: IOHEXOL 300 MG/ML 100 ML VIAL ICOR ONE (16:30)
[2022-06-11] MEDS ORDERED: HEPARIN SODIUM 1000 UNITS/NS 1,000 ML IARTER ONE (16:30)
[2022-06-11] MEDS ORDERED: LIDOCAINE 1% 30 ML/SOD BICARB 8.4% 4 ML SQ ONE (16:30)
[2022-06-11 17:47] LABS: GLUCOSE,POINT OF CARE 75 MG/DL (70-110)
[2022-06-11 18:50] LABS: SPECIMENTYPE,BODY FLUID PLEURAL
[2022-06-11 19:06] LABS: S PNEUMO SOURCE Urine; STREP PNEUMONIAE AG URINE Negative (Negative)
[2022-06-11 20:06] LABS: LEGIONELLA PNEUMO AG URINE Negative (Negative)
[2022-06-11 20:12] LABS: C.DIFF GDH ANTIGEN, Stool Negative (Negative); C.DIFF TOXINS A&B, Stool Negative (Negative)
[2022-06-11 21:09] LABS: APPEARANCE,SPUN,BODY FLUID CLEAR (CLEAR); APPEARANCE,UNSPUN,BODY FLUID CLOUDY (CLEAR)
[2022-06-11 21:10] LABS: COLOR,BODY FLUID RED (LT YELLOW); LYMPHOCYTES,BODY FLUID 48 %; MONOCYTES,BODY FLUID 12 %; NEUTROPHILS,BODY FLUID 29 %; TOTAL VOLUME,BODY FLUID 1075 mL; WBC, BODY FLUID 30 /cu. mm.
[2022-06-11 21:11] LABS: OTHER CELLS,BODY FLUID MESOTHELIALS; PH, BODY FLUID 8
[2022-06-11 21:14] LABS: BASOPHILS,BODY FLUID 0 %; EOSINOPHILS,BF (ANAL) 0 %
[2022-06-12] VITALS: BP 143/64
[2022-06-12] MEDS: PROPOFOL 1000 MG/ISO-OSM 100 ML IV PRN ×5 (00:15→21:07)
[2022-06-12] MEDS: MetroNIDAZOLE 500 MG TABLET PO SCH ×3 (00:15→16:18)
[2022-06-12] MEDS: FentaNYL CIT 1000MCG/0.9% NACL 100 ML IV PRN ×4 (00:19→21:07)
[2022-06-12 04:00] VITALS: BP 158/73
[2022-06-12 05:54] LABS: BASOPHILS % (AUTO) 0.6 % (0.0-2.0); EOSINOPHILS % (AUTO) 2.7 % (1.0-6.0); HEMATOCRIT 31.3 % (36-46); HEMOGLOBIN 9.7 g/dL (12.0-16.0); LYMPHOCYTES # (AUTO) 0.9 K/uL (1.0-4.8); LYMPHOCYTES % (AUTO) 6.2 % (22.0-44.0); MEAN CORPUSCULAR HEMOGLOBIN 25.3 pg (26.0-34.0); MEAN CORPUSCULAR VOLUME 82 fL (80-100); MONOCYTES # (AUTO) 1.7 K/uL (0.1-1.0); MONOCYTES % (AUTO) 12.5 % (2.0-9.0); NEUTROPHILS # (AUTO) 10.9 K/uL (1.8-7.7); PLATELET COUNT (AUTO) 408 K/uL (150-450); RED BLOOD CELL COUNT(AUTO) 3.83 MIL/uL (4.00-5.20); RED CELL DISTRIBUTION WIDTH 26.3 % (11.5-14.5)
[2022-06-12] MEDS: ACETAMINOPHEN 650 MG/20.3 ML SOLUTION UDCUP NG PRN (05:55)
[2022-06-12] MEDS: LEVOTHYROXINE SODIUM 100 MCG TABLET NG SCH (05:57)
[2022-06-12 06:09] LABS: ALANINE AMINOTRANSFERASE 13 U/L (12-78); ALBUMIN 1.4 g/dL (3.4-5.0); ALKALINE PHOSPHATASE 106 U/L (46-116); ANION GAP 2 mmol/L (8-16); ASPARTATE AMINOTRANSFERASE 19 U/L (15-37); BILIRUBIN,TOTAL 0.4 mg/dL (0.1-1.0); CALCIUM, TOTAL 8.6 mg/dL (8.8-10.5); CARBON DIOXIDE 32 mmol/L (22-29); CHLORIDE 107 mmol/L (98-107); GLOMERULAR FILTR. RATE CALC > 60 mL/min (>60); GLUCOSE,RANDOM 117 mg/dL (70-110); POTASSIUM 3.7 mmol/L (3.5-5.1); SODIUM SERUM 141 mmol/L (136-145); TOTAL PROTEIN, SERUM 5.5 g/dL (6.4-8.2); UREA NITROGEN, BLOOD 33 mg/dL (7-18)
[2022-06-12 08:00] VITALS: BP 146/67
[2022-06-12] MEDS: DOCUSATE SODIUM 100 MG/10 ML LIQUID UDCUP NG SCH ×2 (09:00→20:35)
[2022-06-12] MEDS: POLYETHYLENE GLYCOL 3350 17 GM PACKET PO SCH (09:00)
[2022-06-12] MEDS: PANTOPRAZOLE SODIUM 40 MG/VIAL IVP SCH ×2 (09:24→20:34)
[2022-06-12] MEDS: FUROSEMIDE 40 MG/4 ML VIAL IVP SCH (09:24)
[2022-06-12] MEDS: ETHYL ALCOHOL 62% ANTISEPTIC NASAL SANITIZER 0.6 ML AMPUL NASAL SCH ×2 (09:25→20:34)
[2022-06-12] MEDS ORDERED: SODIUM CHLORIDE 0.9% 250 ML IV ONE (10:24)
[2022-06-12] MEDS: LEVOFLOXACIN 750 MG/D5% WATER 150 ML IV SCH (10:39)
[2022-06-12 12:00] VITALS: BP 141/65
[2022-06-12] MEDS: LINEZOLID 600 MG/ISO-OSM 300 ML IV SCH (14:23)
[2022-06-12 16:00] VITALS: BP 152/62
[2022-06-12 20:00] VITALS: BP 143/55
[2022-06-13] MEDS: MetroNIDAZOLE 500 MG TABLET PO SCH ×4 (00:25→23:15)
[2022-06-13 00:42] VITALS: BP 115/50
[2022-06-13] MEDS: LINEZOLID 600 MG/ISO-OSM 300 ML IV SCH ×2 (03:15→13:06)
[2022-06-13] MEDS: PROPOFOL 1000 MG/ISO-OSM 100 ML IV PRN (03:17)
[2022-06-13 04:00] VITALS: BP 148/71
[2022-06-13] MEDS: LEVOTHYROXINE SODIUM 100 MCG TABLET NG SCH (05:34)
[2022-06-13] MEDS: FentaNYL CIT 1000MCG/0.9% NACL 100 ML IV PRN (05:40)
[2022-06-13 08:00] VITALS: BP 94/40
[2022-06-13] MEDS: ETHYL ALCOHOL 62% ANTISEPTIC NASAL SANITIZER 0.6 ML AMPUL NASAL SCH ×2 (08:25→20:29)
[2022-06-13] MEDS: FUROSEMIDE 40 MG/4 ML VIAL IVP SCH (08:25)
[2022-06-13] MEDS: DOCUSATE SODIUM 100 MG/10 ML LIQUID UDCUP NG SCH ×2 (08:26→20:30)
[2022-06-13] MEDS: PANTOPRAZOLE SODIUM 40 MG/VIAL IVP SCH ×2 (08:26→20:29)
[2022-06-13] MEDS: POLYETHYLENE GLYCOL 3350 17 GM PACKET PO SCH (08:26)
[2022-06-13 08:44] LABS: BASOPHILS % (AUTO) 0.3 % (0.0-2.0); EOSINOPHILS % (AUTO) 2.9 % (1.0-6.0); HEMATOCRIT 29.1 % (36-46); HEMOGLOBIN 9.1 g/dL (12.0-16.0); LYMPHOCYTES # (AUTO) 1.6 K/uL (1.0-4.8); LYMPHOCYTES % (AUTO) 9.6 % (22.0-44.0); MEAN CORPUSCULAR HEMOGLOBIN 25.1 pg (26.0-34.0); MEAN CORPUSCULAR HGB CONC 31.3 G/dL (31.0-37.0); MEAN CORPUSCULAR VOLUME 80 fL (80-100); MONOCYTES # (AUTO) 1.6 K/uL (0.1-1.0); MONOCYTES % (AUTO) 9.9 % (2.0-9.0); NEUTROPHILS # (AUTO) 12.6 K/uL (1.8-7.7); NEUTROPHILS % (AUTO) 77.3 % (40.0-70.0); PLATELET COUNT (AUTO) 367 K/uL (150-450); RED BLOOD CELL COUNT(AUTO) 3.63 MIL/uL (4.00-5.20); RED CELL DISTRIBUTION WIDTH 25.9 % (11.5-14.5)
[2022-06-13] MEDS: MORPHINE SULFATE 2 MG/ML SYRINGE IVP PRN ×2 (08:51→23:12)
[2022-06-13 08:57] LABS: ANION GAP 3 mmol/L (8-16); C-REACTIVE PROTEIN QUANT 23.23 mg/dL (0.00-0.30); CALCIUM, TOTAL 8.5 mg/dL (8.8-10.5); CARBON DIOXIDE 33 mmol/L (22-29); CHLORIDE 107 mmol/L (98-107); CREATININE 0.69 mg/dL (0.60-1.30); GLUCOSE,RANDOM 139 mg/dL (70-110); POTASSIUM 3.6 mmol/L (3.5-5.1); SODIUM SERUM 143 mmol/L (136-145); UREA NITROGEN, BLOOD 24 mg/dL (7-18)
[2022-06-13 08:58] LABS: GLOMERULAR FILTR. RATE CALC > 60 mL/min (>60)
[2022-06-13] MEDS: LABETALOL HCL 5 MG/ML 20 ML VIAL IVP PRN ×2 (09:53→23:13)
[2022-06-13 12:00] VITALS: BP 149/61
[2022-06-13] MEDS: ACETAMINOPHEN 650 MG/20.3 ML SOLUTION UDCUP NG PRN ×2 (13:06→23:12)
[2022-06-13 15:09] LABS: APPEARANCE,URINE HAZY (CLEAR); BILIRUBIN,URINE NEGATIVE (NEGATIVE); GLUCOSE, URINE (UA) NEGATIVE (NEGATIVE); KETONES,URINE NEGATIVE (NEGATIVE); LEUKOCYTE ESTERASE ,URINE LARGE (NEGATIVE); OCCULT BLOOD,URINE TRACE (NEGATIVE); PH,URINE 5.5 (5.0-8.0); PROTEIN,URINE 30-70 mg/dL (NEGATIVE); UROBILINOGEN,URINE <=1.0 mg/dL (<=1.0)
[2022-06-13 15:38] LABS: BACTERIA,URINE Many /HPF (None Seen); NITRATE,URINE POSITIVE (NEGATIVE); SQUAMOUS EPITHELIAL CELL,UR Few /LPF (None Seen); WBC,URINE 51-100 /HPF (0-5)
[2022-06-13 16:00] VITALS: BP 123/59
[2022-06-13] MEDS: CefTAZidime PENTAHYDRATE 2 GM in DEXTROSE 5%-WATER 50 ML IV SCH (16:52)
[2022-06-13 20:00] VITALS: BP 156/75
[2022-06-14] VITALS: BP 155/74
[2022-06-14] MEDS: CefTAZidime PENTAHYDRATE 2 GM in DEXTROSE 5%-WATER 50 ML IV SCH ×3 (00:36→17:12)
[2022-06-14] MEDS: LINEZOLID 600 MG/ISO-OSM 300 ML IV SCH ×2 (03:29→14:45)
[2022-06-14 04:00] VITALS: BP 194/85
[2022-06-14] MEDS ORDERED: SODIUM CHLORIDE 0.9% 250 ML IV ONE (04:10)
[2022-06-14] MEDS: MORPHINE SULFATE 2 MG/ML SYRINGE IVP PRN ×3 (04:57→16:40)
[2022-06-14] MEDS: LABETALOL HCL 5 MG/ML 20 ML VIAL IVP PRN ×2 (05:31→14:01)
[2022-06-14] MEDS: LEVOTHYROXINE SODIUM 100 MCG TABLET NG SCH (05:34)
[2022-06-14 05:36] LABS: BASOPHILS % (AUTO) 0.4 % (0.0-2.0); EOSINOPHILS % (AUTO) 1.8 % (1.0-6.0); HEMATOCRIT 29.2 % (36-46); HEMOGLOBIN 9.1 g/dL (12.0-16.0); LYMPHOCYTES # (AUTO) 1.1 K/uL (1.0-4.8); LYMPHOCYTES % (AUTO) 8.6 % (22.0-44.0); MEAN CORPUSCULAR HEMOGLOBIN 24.9 pg (26.0-34.0); MEAN CORPUSCULAR HGB CONC 31.1 G/dL (31.0-37.0); MEAN CORPUSCULAR VOLUME 80 fL (80-100); MONOCYTES # (AUTO) 1.2 K/uL (0.1-1.0); MONOCYTES % (AUTO) 9.2 % (2.0-9.0); NEUTROPHILS # (AUTO) 10.3 K/uL (1.8-7.7); PLATELET COUNT (AUTO) 366 K/uL (150-450); RED BLOOD CELL COUNT(AUTO) 3.66 MIL/uL (4.00-5.20); RED CELL DISTRIBUTION WIDTH 26.6 % (11.5-14.5)
[2022-06-14 08:00] VITALS: BP 171/75
[2022-06-14] MEDS: ETHYL ALCOHOL 62% ANTISEPTIC NASAL SANITIZER 0.6 ML AMPUL NASAL SCH ×2 (08:02→20:41)
[2022-06-14] MEDS: PANTOPRAZOLE SODIUM 40 MG/VIAL IVP SCH ×2 (08:03→20:41)
[2022-06-14] MEDS: DOCUSATE SODIUM 100 MG/10 ML LIQUID UDCUP NG SCH ×2 (08:03→20:42)
[2022-06-14] MEDS: MetroNIDAZOLE 500 MG TABLET PO SCH ×2 (08:03→15:38)
[2022-06-14] MEDS: FUROSEMIDE 40 MG/4 ML VIAL IVP SCH (08:03)
[2022-06-14] MEDS: POLYETHYLENE GLYCOL 3350 17 GM PACKET PO SCH (08:03)
[2022-06-14] MEDS: AmLODIPine BESYLATE 5 MG TABLET NG SCH ×2 (10:30→20:41)
[2022-06-14 12:00] VITALS: BP 163/77
[2022-06-14] MEDS: ACETAMINOPHEN 650 MG/20.3 ML SOLUTION UDCUP NG PRN (15:39)
[2022-06-14 16:00] VITALS: BP 161/76
[2022-06-14] MEDS ORDERED: VANCOMYCIN HCL 1.5 GM in DEXTROSE 5%-WATER 250 ML IV ONE (16:00)
[2022-06-14 20:00] VITALS: BP 158/75
[2022-06-15] VITALS: BP 162/77
[2022-06-15] MEDS: CefTAZidime PENTAHYDRATE 2 GM in DEXTROSE 5%-WATER 50 ML IV SCH ×3 (00:06→17:49)
[2022-06-15] MEDS: VANCOMYCIN HCL 1 GM in DEXTROSE 5%-WATER 250 ML IV SCH ×4 (00:08→23:57)
[2022-06-15] MEDS: MetroNIDAZOLE 500 MG TABLET PO SCH ×4 (00:08→23:58)
[2022-06-15] MEDS: ACETAMINOPHEN 650 MG/20.3 ML SOLUTION UDCUP NG PRN ×2 (00:16→08:41)
[2022-06-15] MEDS: LABETALOL HCL 5 MG/ML 20 ML VIAL IVP PRN ×2 (03:12→23:57)
[2022-06-15] MEDS: MORPHINE SULFATE 2 MG/ML SYRINGE IVP PRN (03:15)
[2022-06-15] MEDS ORDERED: SODIUM CHLORIDE 0.9% 250 ML IV ONE ×3 (03:19→23:59)
[2022-06-15 04:48] VITALS: BP 156/77
[2022-06-15] MEDS: LEVOTHYROXINE SODIUM 100 MCG TABLET NG SCH (05:52)
[2022-06-15 06:30] LABS: C-REACTIVE PROTEIN QUANT 9.01 mg/dL (0.00-0.30)
[2022-06-15 08:00] VITALS: BP 147/77
[2022-06-15] MEDS: ETHYL ALCOHOL 62% ANTISEPTIC NASAL SANITIZER 0.6 ML AMPUL NASAL SCH ×2 (08:36→20:51)
[2022-06-15] MEDS: FUROSEMIDE 40 MG/4 ML VIAL IVP SCH (08:36)
[2022-06-15] MEDS: PANTOPRAZOLE SODIUM 40 MG/VIAL IVP SCH ×2 (08:36→20:51)
[2022-06-15] MEDS: AmLODIPine BESYLATE 5 MG TABLET NG SCH ×2 (08:38→20:51)
[2022-06-15] MEDS: POLYETHYLENE GLYCOL 3350 17 GM PACKET PO SCH (08:41)
[2022-06-15] MEDS: DOCUSATE SODIUM 100 MG/10 ML LIQUID UDCUP NG SCH ×2 (08:41→20:51)
[2022-06-15 11:38] LABS: ANION GAP 5 mmol/L (8-16); CALCIUM, TOTAL 8.1 mg/dL (8.8-10.5); CARBON DIOXIDE 30 mmol/L (22-29); CHLORIDE 106 mmol/L (98-107); CREATININE 0.54 mg/dL (0.60-1.30); GLOMERULAR FILTR. RATE CALC > 60 mL/min (>60); GLUCOSE,RANDOM 149 mg/dL (70-110); POTASSIUM 3.5 mmol/L (3.5-5.1); SODIUM SERUM 141 mmol/L (136-145); UREA NITROGEN, BLOOD 23 mg/dL (7-18)
[2022-06-15 12:00] VITALS: BP 150/74
[2022-06-15 16:00] VITALS: BP 148/72
[2022-06-15 20:00] VITALS: BP 164/87
[2022-06-16] VITALS: BP 173/81
[2022-06-16] MEDS: CefTAZidime PENTAHYDRATE 2 GM in DEXTROSE 5%-WATER 50 ML IV SCH ×3 (01:50→16:37)
[2022-06-16 04:00] VITALS: BP 176/73
[2022-06-16] MEDS: MORPHINE SULFATE 2 MG/ML SYRINGE IVP PRN (04:08)
[2022-06-16 05:50] LABS: BASOPHILS % (AUTO) 0.9 % (0.0-2.0); EOSINOPHILS % (AUTO) 3.7 % (1.0-6.0); HEMATOCRIT 29.4 % (36-46); HEMOGLOBIN 9.6 g/dL (12.0-16.0); LYMPHOCYTES # (AUTO) 1.5 K/uL (1.0-4.8); MEAN CORPUSCULAR HEMOGLOBIN 25.7 pg (26.0-34.0); MEAN CORPUSCULAR HGB CONC 32.6 G/dL (31.0-37.0); MEAN CORPUSCULAR VOLUME 79 fL (80-100); MONOCYTES # (AUTO) 1.1 K/uL (0.1-1.0); MONOCYTES % (AUTO) 10.8 % (2.0-9.0); NEUTROPHILS # (AUTO) 7.3 K/uL (1.8-7.7); NEUTROPHILS % (AUTO) 70.6 % (40.0-70.0); PLATELET COUNT (AUTO) 316 K/uL (150-450); RED BLOOD CELL COUNT(AUTO) 3.74 MIL/uL (4.00-5.20); RED CELL DISTRIBUTION WIDTH 26.7 % (11.5-14.5)
[2022-06-16 06:06] LABS: ANION GAP 3 mmol/L (8-16); CALCIUM, TOTAL 8.2 mg/dL (8.8-10.5); CARBON DIOXIDE 34 mmol/L (22-29); CHLORIDE 103 mmol/L (98-107); CREATININE 0.58 mg/dL (0.60-1.30); GLUCOSE,RANDOM 120 mg/dL (70-110); POTASSIUM 3.5 mmol/L (3.5-5.1); SODIUM SERUM 140 mmol/L (136-145); UREA NITROGEN, BLOOD 22 mg/dL (7-18)
[2022-06-16] MEDS: LEVOTHYROXINE SODIUM 100 MCG TABLET NG SCH (06:08)
[2022-06-16 06:14] LABS: GLOMERULAR FILTR. RATE CALC > 60 mL/min (>60)
[2022-06-16 06:51] LABS: GLUCOSE,POINT OF CARE 120 MG/DL (70-110)
[2022-06-16 07:37] LABS: VANCOMYCIN,RANDOM 27.5 mcg/mL (25.0-50.0)
[2022-06-16 08:00] VITALS: BP 180/88
[2022-06-16] MEDS: MetroNIDAZOLE 500 MG TABLET PO SCH ×2 (08:00→16:38)
[2022-06-16] MEDS ORDERED: HydrALAZINE HCL 20 MG/ML VIAL IVP ONE (08:15)
[2022-06-16] MEDS: VANCOMYCIN HCL 1 GM in DEXTROSE 5%-WATER 250 ML IV SCH (08:29)
[2022-06-16] MEDS: FUROSEMIDE 40 MG/4 ML VIAL IVP SCH (08:30)
[2022-06-16] MEDS: PANTOPRAZOLE SODIUM 40 MG/VIAL IVP SCH ×2 (08:30→20:16)
[2022-06-16] MEDS: ETHYL ALCOHOL 62% ANTISEPTIC NASAL SANITIZER 0.6 ML AMPUL NASAL SCH ×2 (08:31→20:16)
[2022-06-16] MEDS: DOCUSATE SODIUM 100 MG/10 ML LIQUID UDCUP NG SCH ×2 (08:32→20:15)
[2022-06-16] MEDS: POLYETHYLENE GLYCOL 3350 17 GM PACKET PO SCH (08:32)
[2022-06-16 08:34] LABS: PROTHROMBIN TIME 11.1 SEC (9.4-11.6)
[2022-06-16] MEDS: AmLODIPine BESYLATE 5 MG TABLET NG SCH ×2 (08:34→20:16)
[2022-06-16 12:00] VITALS: BP 153/73
[2022-06-16 14:26] LABS: GLUCOSE,POINT OF CARE 121 MG/DL (70-110)
[2022-06-16 16:00] VITALS: BP 149/73
[2022-06-16 20:00] VITALS: BP 152/72
[2022-06-16] MEDS: VANCOMYCIN HCL 1.25 GM in DEXTROSE 5%-WATER 250 ML IV SCH (20:15)
[2022-06-16] MEDS: LABETALOL HCL 5 MG/ML 20 ML VIAL IVP PRN (20:54)
[2022-06-17] VITALS: BP 169/77
[2022-06-17] MEDS: MetroNIDAZOLE 500 MG TABLET PO SCH ×4 (00:29→23:59)
[2022-06-17] MEDS: CefTAZidime PENTAHYDRATE 2 GM in DEXTROSE 5%-WATER 50 ML IV SCH ×2 (00:30→08:50)
[2022-06-17 04:00] VITALS: BP 162/72
[2022-06-17 05:33] LABS: BASOPHILS % (AUTO) 0.9 % (0.0-2.0); EOSINOPHILS % (AUTO) 4.6 % (1.0-6.0); HEMATOCRIT 30.1 % (36-46); HEMOGLOBIN 9.6 g/dL (12.0-16.0); LYMPHOCYTES # (AUTO) 1.2 K/uL (1.0-4.8); LYMPHOCYTES % (AUTO) 11.6 % (22.0-44.0); MEAN CORPUSCULAR HEMOGLOBIN 25.2 pg (26.0-34.0); MEAN CORPUSCULAR VOLUME 79 fL (80-100); MONOCYTES # (AUTO) 1.2 K/uL (0.1-1.0); MONOCYTES % (AUTO) 11.5 % (2.0-9.0); NEUTROPHILS # (AUTO) 7.6 K/uL (1.8-7.7); NEUTROPHILS % (AUTO) 71.4 % (40.0-70.0); PLATELET COUNT (AUTO) 288 K/uL (150-450); RED BLOOD CELL COUNT(AUTO) 3.82 MIL/uL (4.00-5.20); RED CELL DISTRIBUTION WIDTH 26.2 % (11.5-14.5)
[2022-06-17 05:47] LABS: ANION GAP 2 mmol/L (8-16); C-REACTIVE PROTEIN QUANT 3.11 mg/dL (0.00-0.30); CALCIUM, TOTAL 8.5 mg/dL (8.8-10.5); CARBON DIOXIDE 35 mmol/L (22-29); CHLORIDE 102 mmol/L (98-107); CREATININE 0.57 mg/dL (0.60-1.30); GLUCOSE,RANDOM 113 mg/dL (70-110); POTASSIUM 3.5 mmol/L (3.5-5.1); SODIUM SERUM 139 mmol/L (136-145); UREA NITROGEN, BLOOD 22 mg/dL (7-18)
[2022-06-17 05:48] LABS: GLOMERULAR FILTR. RATE CALC > 60 mL/min (>60)
[2022-06-17] MEDS: LEVOTHYROXINE SODIUM 100 MCG TABLET NG SCH (06:09)
[2022-06-17 08:00] VITALS: BP 162/74
[2022-06-17] MEDS: AmLODIPine BESYLATE 5 MG TABLET NG SCH ×2 (08:48→21:35)
[2022-06-17] MEDS: VANCOMYCIN HCL 1.25 GM in DEXTROSE 5%-WATER 250 ML IV SCH (08:48)
[2022-06-17] MEDS: DOCUSATE SODIUM 100 MG/10 ML LIQUID UDCUP NG SCH ×2 (08:48→21:00)
[2022-06-17] MEDS: ETHYL ALCOHOL 62% ANTISEPTIC NASAL SANITIZER 0.6 ML AMPUL NASAL SCH ×2 (08:49→21:36)
[2022-06-17] MEDS: POLYETHYLENE GLYCOL 3350 17 GM PACKET PO SCH (08:49)
[2022-06-17] MEDS: FUROSEMIDE 40 MG/4 ML VIAL IVP SCH (08:50)
[2022-06-17] MEDS: PANTOPRAZOLE SODIUM 40 MG/VIAL IVP SCH ×2 (08:50→21:35)
[2022-06-17] MEDS: MORPHINE SULFATE 2 MG/ML SYRINGE IVP PRN (08:53)
[2022-06-17 12:00] VITALS: BP 159/69
[2022-06-17] MEDS ORDERED: MIDAZOLAM HCL 2 MG/2 ML VIAL ONE (14:26)
[2022-06-17] MEDS ORDERED: FentaNYL CITRATE PF 100 MCG/2 ML VIAL ONE (14:26)
[2022-06-17] MEDS ORDERED: FentaNYL CITRATE PF 100 MCG/2 ML VIAL IVP ONE (14:45)
[2022-06-17] MEDS ORDERED: MIDAZOLAM HCL 2 MG/2 ML VIAL IVP ONE (14:45)
[2022-06-17 16:00] VITALS: BP 152/65
[2022-06-17] MEDS: CeFAZolin 2 GM/DEXTROSE 50 ML IV SCH ×2 (16:47→23:59)
[2022-06-17 20:00] VITALS: BP 153/69
[2022-06-18] VITALS: BP 130/61
[2022-06-18 04:00] VITALS: BP 130/61
[2022-06-18 06:04] LABS: ALANINE AMINOTRANSFERASE 11 U/L (12-78); ALBUMIN 1.4 g/dL (3.4-5.0); ALKALINE PHOSPHATASE 214 U/L (46-116); ANION GAP 4 mmol/L (8-16); ASPARTATE AMINOTRANSFERASE 22 U/L (15-37); BILIRUBIN,TOTAL 0.5 mg/dL (0.1-1.0); CALCIUM, TOTAL 8.1 mg/dL (8.8-10.5); CARBON DIOXIDE 35 mmol/L (22-29); CHLORIDE 101 mmol/L (98-107); CREATININE 0.53 mg/dL (0.60-1.30); GLUCOSE,RANDOM 107 mg/dL (70-110); POTASSIUM 3.3 mmol/L (3.5-5.1); SODIUM SERUM 140 mmol/L (136-145); TOTAL PROTEIN, SERUM 5.1 g/dL (6.4-8.2); UREA NITROGEN, BLOOD 20 mg/dL (7-18)
[2022-06-18 06:19] LABS: GLOMERULAR FILTR. RATE CALC > 60 mL/min (>60)
[2022-06-18] MEDS: LEVOTHYROXINE SODIUM 100 MCG TABLET NG SCH (06:44)
[2022-06-18 07:03] LABS: BASOPHILS % (AUTO) 0.7 % (0.0-2.0); EOSINOPHILS % (AUTO) 3.7 % (1.0-6.0); HEMATOCRIT 29.9 % (36-46); HEMOGLOBIN 9.5 g/dL (12.0-16.0); LYMPHOCYTES # (AUTO) 1.5 K/uL (1.0-4.8); LYMPHOCYTES % (AUTO) 13.1 % (22.0-44.0); MEAN CORPUSCULAR HGB CONC 31.8 G/dL (31.0-37.0); MEAN CORPUSCULAR VOLUME 79 fL (80-100); MONOCYTES # (AUTO) 1.3 K/uL (0.1-1.0); MONOCYTES % (AUTO) 11.3 % (2.0-9.0); NEUTROPHILS # (AUTO) 8.1 K/uL (1.8-7.7); NEUTROPHILS % (AUTO) 71.2 % (40.0-70.0); PLATELET COUNT (AUTO) 255 K/uL (150-450); RED CELL DISTRIBUTION WIDTH 25.5 % (11.5-14.5)
[2022-06-18 08:00] VITALS: BP 146/67
[2022-06-18] MEDS: CeFAZolin 2 GM/DEXTROSE 50 ML IV SCH ×2 (08:16→16:11)
[2022-06-18] MEDS: MetroNIDAZOLE 500 MG TABLET PO SCH ×2 (08:16→16:11)
[2022-06-18] MEDS: FUROSEMIDE 40 MG/4 ML VIAL IVP SCH (08:16)
[2022-06-18] MEDS: POLYETHYLENE GLYCOL 3350 17 GM PACKET PO SCH (08:16)
[2022-06-18] MEDS: PANTOPRAZOLE SODIUM 40 MG/VIAL IVP SCH ×2 (08:16→20:00)
[2022-06-18] MEDS: ETHYL ALCOHOL 62% ANTISEPTIC NASAL SANITIZER 0.6 ML AMPUL NASAL SCH ×2 (08:16→20:00)
[2022-06-18] MEDS: DOCUSATE SODIUM 100 MG/10 ML LIQUID UDCUP NG SCH ×2 (08:16→20:01)
[2022-06-18] MEDS: AmLODIPine BESYLATE 5 MG TABLET NG SCH ×2 (08:16→20:01)
[2022-06-18 12:00] VITALS: BP 108/51
[2022-06-18 16:00] VITALS: BP 138/60
[2022-06-18] MEDS ORDERED: POTASSIUM CHLORIDE 10% 40 MEQ/30 ML LIQUID UDCUP GT ONE (18:00)
[2022-06-18 20:00] VITALS: BP 159/76
[2022-06-19] VITALS: BP 152/68
[2022-06-19] MEDS: MetroNIDAZOLE 500 MG TABLET PO SCH ×3 (00:33→16:32)
[2022-06-19] MEDS: CeFAZolin 2 GM/DEXTROSE 50 ML IV SCH ×2 (00:34→08:52)
[2022-06-19 03:05] VITALS: BP 151/66
[2022-06-19] MEDS: MORPHINE SULFATE 2 MG/ML SYRINGE IVP PRN (03:05)
[2022-06-19 04:00] VITALS: BP 166/74
[2022-06-19 05:49] LABS: BASOPHILS % (AUTO) 0.6 % (0.0-2.0); EOSINOPHILS % (AUTO) 3.1 % (1.0-6.0); HEMATOCRIT 30.8 % (36-46); HEMOGLOBIN 9.9 g/dL (12.0-16.0); LYMPHOCYTES # (AUTO) 1.4 K/uL (1.0-4.8); LYMPHOCYTES % (AUTO) 12.7 % (22.0-44.0); MEAN CORPUSCULAR HEMOGLOBIN 25.3 pg (26.0-34.0); MEAN CORPUSCULAR VOLUME 79 fL (80-100); MONOCYTES # (AUTO) 1.2 K/uL (0.1-1.0); MONOCYTES % (AUTO) 10.3 % (2.0-9.0); NEUTROPHILS # (AUTO) 8.3 K/uL (1.8-7.7); NEUTROPHILS % (AUTO) 73.3 % (40.0-70.0); PLATELET COUNT (AUTO) 241 K/uL (150-450); RED CELL DISTRIBUTION WIDTH 25.7 % (11.5-14.5)
[2022-06-19 06:00] LABS: ANION GAP 4 mmol/L (8-16); CARBON DIOXIDE 37 mmol/L (22-29); CHLORIDE 101 mmol/L (98-107); CREATININE 0.57 mg/dL (0.60-1.30); GLUCOSE,RANDOM 116 mg/dL (70-110); POTASSIUM 3.6 mmol/L (3.5-5.1); SODIUM SERUM 142 mmol/L (136-145); UREA NITROGEN, BLOOD 19 mg/dL (7-18)
[2022-06-19 06:02] LABS: GLOMERULAR FILTR. RATE CALC > 60 mL/min (>60)
[2022-06-19] MEDS: LEVOTHYROXINE SODIUM 100 MCG TABLET NG SCH (06:13)
[2022-06-19 08:00] VITALS: BP 149/62
[2022-06-19] MEDS: FUROSEMIDE 40 MG/4 ML VIAL IVP SCH (08:52)
[2022-06-19] MEDS: PANTOPRAZOLE SODIUM 40 MG/VIAL IVP SCH (08:53)
[2022-06-19] MEDS: ETHYL ALCOHOL 62% ANTISEPTIC NASAL SANITIZER 0.6 ML AMPUL NASAL SCH (08:53)
[2022-06-19] MEDS: AmLODIPine BESYLATE 5 MG TABLET NG SCH (08:53)
[2022-06-19] MEDS: DOCUSATE SODIUM 100 MG/10 ML LIQUID UDCUP NG SCH (08:53)
[2022-06-19] MEDS: POLYETHYLENE GLYCOL 3350 17 GM PACKET PO SCH (08:53)
[2022-06-19 12:00] VITALS: BP 145/69
[2022-06-19] MEDS ORDERED: LINEZOLID 600 MG/ISO-OSM 300 ML IV SCH (15:00)
[2022-06-19 16:00] VITALS: BP 146/83
== END 2022-06-19 17:10 | DRG 4 ==
LOC: EMS 10:27 → ICU 18:37
PROVIDERS: ADMIT Hospitalist; ATTEND Hospitalist
PROC: 5A1955Z Respiratory Ventilation, Greater than 96 Consecutive Hours (ICD-10-PCS; principal; 2022-05-23)
PROC: 0BH17EZ Insertion of Endotracheal Airway into Trachea, Via Natural or Artificial Opening (ICD-10-PCS; 2022-05-23)
PROC: 30233N1 Transfusion of Nonautologous Red Blood Cells into Peripheral Vein, Percutaneous Approach (ICD-10-PCS; 2022-05-24)
PROC: 30233N1 Transfusion of Nonautologous Red Blood Cells into Peripheral Vein, Percutaneous Approach (ICD-10-PCS; 2022-05-24)
PROC: 30233N1 Transfusion of Nonautologous Red Blood Cells into Peripheral Vein, Percutaneous Approach (ICD-10-PCS; 2022-05-29)
PROC: 0DJ08ZZ Inspection of Upper Intestinal Tract, Via Natural or Artificial Opening Endoscopic (ICD-10-PCS; 2022-06-02)
PROC: 30233N1 Transfusion of Nonautologous Red Blood Cells into Peripheral Vein, Percutaneous Approach (ICD-10-PCS; 2022-06-02)
PROC: 30233N1 Transfusion of Nonautologous Red Blood Cells into Peripheral Vein, Percutaneous Approach (ICD-10-PCS; 2022-06-04)
PROC: 30233N1 Transfusion of Nonautologous Red Blood Cells into Peripheral Vein, Percutaneous Approach (ICD-10-PCS; 2022-06-05)
PROC: 30233N1 Transfusion of Nonautologous Red Blood Cells into Peripheral Vein, Percutaneous Approach (ICD-10-PCS; 2022-06-06)
PROC: 30233N1 Transfusion of Nonautologous Red Blood Cells into Peripheral Vein, Percutaneous Approach (ICD-10-PCS; 2022-06-06)
PROC: 30233N1 Transfusion of Nonautologous Red Blood Cells into Peripheral Vein, Percutaneous Approach (ICD-10-PCS; 2022-06-07)
PROC: 0B113F4 Bypass Trachea to Cutaneous with Tracheostomy Device, Percutaneous Approach (ICD-10-PCS; 2022-06-10)
PROC: 0BJ08ZZ Inspection of Tracheobronchial Tree, Via Natural or Artificial Opening Endoscopic (ICD-10-PCS; 2022-06-10)
PROC: 06H03DZ Insertion of Intraluminal Device into Inferior Vena Cava, Percutaneous Approach (ICD-10-PCS; 2022-06-11)
PROC: B51L1ZZ Fluoroscopy of Bilateral Renal Veins using Low Osmolar Contrast (ICD-10-PCS; 2022-06-11)
PROC: 0W9B3ZZ Drainage of Left Pleural Cavity, Percutaneous Approach (ICD-10-PCS; 2022-06-11)
PROC: 0DH63UZ Insertion of Feeding Device into Stomach, Percutaneous Approach (ICD-10-PCS; 2022-06-17)
DX: A41.9 Sepsis, unspecified organism (principal); I46.9 Cardiac arrest, cause unspecified; J96.02 Acute respiratory failure with hypercapnia; J69.0 Pneumonitis due to inhalation of food and vomit; R57.1 Hypovolemic shock; K66.1 Hemoperitoneum; E44.0 Moderate protein-calorie malnutrition; N17.9 Acute kidney failure, unspecified; I82.431 Acute embolism and thrombosis of right popliteal vein; E87.20 Acidosis, unspecified; E87.1 Hypo-osmolality and hyponatremia; J90 Pleural effusion, not elsewhere classified; Z99.11 Dependence on respirator [ventilator] status; Z68.44 Body mass index [BMI] 60.0-69.9, adult; N39.0 Urinary tract infection, site not specified; B96.20 Unspecified Escherichia coli [E. coli] as the cause of diseases classified elsewhere; E06.2 Chronic thyroiditis with transient thyrotoxicosis; D50.9 Iron deficiency anemia, unspecified; E11.65 Type 2 diabetes mellitus with hyperglycemia; D69.6 Thrombocytopenia, unspecified; E86.1 Hypovolemia; E03.9 Hypothyroidism, unspecified; R74.8 Abnormal levels of other serum enzymes; K12.1 Other forms of stomatitis; B96.89 Other specified bacterial agents as the cause of diseases classified elsewhere; I10 Essential (primary) hypertension; Z79.899 Other long term (current) drug therapy; Z88.0 Allergy status to penicillin
CPT/HCPCS: 32555; 36245; 36556; 36569; 36600; 37619; 51702; 70450; 71045; 71275; 74018; 74177; 76000; 76937; 76942; 80048; 80053; 80202; 81001; 81002; 82140; 82465; 82805; 82945; 82962; 83540; 83550; 83605; 83615; 83690; 83735; 83880; 83986; 84100; 84145; 84157; 84439; 84443; 84484; 85014; 85018; 85025; 85379; 85610; 85730; 86140; 86850; 86900; 86901; 86923; 87015; 87040; 87070; 87075; 87077; 87081; 87086; 87101; 87186; 87205; 87206; 87220; 87324; 87449; 87899; 88112; 88305; 89051; 93005; 93306; 93925; 93970; 94002; 94003; 99291; 99292; C9113; G0238; G0378; G0480; J0360; J0690; J0713; J1644; J1940; J1956; J2020; J2250; J2270; J2543; J2704; J3010; J3370; J3490; J7030; J7040; J7042; J7050; J7060; P9016; Q9967; 36415-L1; 36415-TC